=== PATIENT | female | born 1945 | race Caucasian/White ===

== ENCOUNTER 2020-04-11 07:13 | Inpatient (IN) | payer MEDICARE, OTHER ==
[2020-04-11] MEDS ORDERED: PANTOPRAZOLE 40 MG VIAL IVP STA (07:29)
[2020-04-11] MEDS ORDERED: ONDANSETRON 4 MG/2 ML VIAL IVP STA (07:29)
--- NOTE | 2020-04-11 07:32 | ED Physician Documentation ---
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 She takes aspirin daily, no other anticoagulants or NSAIDs. She woke just after midnight with nausea and vomiting with frequent stools. Subsequently the vomiting became more dark consistent with blood. There is no associated pain. No fevers. No sick contacts. Review of Systems Ten Systems: 10 systems reviewed and negative Constitutional: denies: Fever, Chills GI: reports: Nausea, Vomiting. denies: Abdominal Pain, Bloody / black stool Psychiatric: reports: Anxiety (It is been a tough year for her, lots of worries about politics.) PD PAST MEDICAL HISTORY - Past Medical History Past Medical History: Yes Cardiovascular: Hypertension - Past Surgical History Past Surgical History: Yes General: Cholecystectomy Cardiovascular: Other (R carotid endarterectomy) - Allergies Allergies/Adverse Reactions: Allergies Allergy/AdvReac Type Severity Reaction Status Date / Time erythromycin base Allergy Rash Verified 04/11/20 07:29 - Family History Family history: reports: Non contributory PD ED PE NORMAL - Vitals Vital signs reviewed: Yes - General General: Alert and oriented X 3, No acute distress - HEENT HEENT: PERRL, EOMI - Neck Neck: Supple, no meningeal sign, No bony TTP - Cardiac Cardiac: RRR, No murmur - Respiratory Respiratory: No respiratory distress, Clear bilaterally - Abdomen Abdomen: Soft, Non tender - Derm Derm: No rash - Extremities Extremities: No edema - Neuro Neuro: Alert and oriented X 3, Normal speech Results - Vitals Vitals: Vital Signs - 24 hr 04/11/20 04/11/20 04/11/20 07:25 09:24 11:16 Temperature 36.7 C 36.5 C Heart Rate 70 70 73 Respiratory 22 17 Rate Blood Pressure 197/109 H 171/80 H 168/76 H O2 Saturation 99 98 97 Oxygen O2 Source Room air - EKG (time done) 1254 Rate: Rate (enter#) (69) Rhythm: NSR, LAE Perry: Normal Intervals: Normal CA Ischemia: Non specific changes. No: ST elevation c/w ischemia Computer interpretation: Agree with computer - Labs Labs: Laboratory Tests 04/11/20 04/11/20 04/11/20 07:30 07:30 07:30 WBC 7.8 RBC 4.86 Hgb 13.5 Hct 41.3 MCV 85.0 MCH 27.8 MCHC 32.7 RDW 14.0 Plt Count 195 MPV 10.1 Neut # (Auto) 5.9 Lymph # (Auto) 1.5 Davis # (Auto) 0.3 Eos # (Auto) 0.0 Baso # (Auto) 0.0 Absolute Nucleated RBC 0.00 Nucleated RBC % 0.0 PT 12.4 INR 1.1 Sodium 141 Potassium 3.5 Chloride 104 Carbon Dioxide 25 Anion Gap 12.0 BUN 25 H Creatinine 0.9 Estimated GFR (MDRD) 61 L Glucose 149 H Calcium 9.7 Total Bilirubin 0.7 AST 25 ALT 19 Alkaline Phosphatase 86 Troponin I High Sens Total Protein 7.8 Albumin 4.4 Globulin 3.4 Albumin/Globulin Ratio 1.3 Lipase 39 Blood Type Blood Type Recheck Antibody Screen 04/11/20 04/11/20 04/11/20 07:30 07:30 07:40 WBC RBC Hgb Hct MCV MCH MCHC RDW Plt Count MPV Neut # (Auto) Lymph # (Auto) Davis # (Auto) Eos # (Auto) Baso # (Auto) Absolute Nucleated RBC Nucleated RBC % PT INR Sodium Potassium Chloride Carbon Dioxide Anion Gap BUN Creatinine Estimated GFR (MDRD) Glucose Calcium Total Bilirubin AST ALT Alkaline Phosphatase Troponin I High Sens 11.7 Total Protein Albumin Globulin Albumin/Globulin Ratio Lipase Blood Type O NEGATIVE Blood Type Recheck O NEGATIVE Antibody Screen NEGATIVE 04/11/20 09:32 WBC RBC Hgb 12.4 Hct 39.0 MCV MCH MCHC RDW Plt Count MPV Neut # (Auto) Lymph # (Auto) Davis # (Auto) Eos # (Auto) Baso # (Auto) Absolute Nucleated RBC Nucleated RBC % PT INR Sodium Potassium Chloride Carbon Dioxide Anion Gap BUN Creatinine Estimated GFR (MDRD) Glucose Calcium Total Bilirubin AST ALT Alkaline Phosphatase Troponin I High Sens Total Protein Albumin Globulin Albumin/Globulin Ratio Lipase Blood Type Blood Type Recheck Antibody Screen PD MEDICAL DECISION MAKING - ED course ED course: 74-year-old woman with vomiting and loose stools, pattern consistent with gastroenteritis and then the vomit became somewhat bloody most consistent with a Amairani-Reyes tear. She was treated with divided doses of him antiemetics, and was still feeling bad although the vomiting pretty much abated. She had a 1 point drop in H&H after 2 hours. EKG was nonischemic. She continued to have significant nausea and could not tolerate oral liquids and after a fourth dose of antiemetics the decision was made to place her in observation which Dr. Marie will do. Coronary insult was considered, but EKG and troponin are nonischemic. Departure - Departure Disposition: ED Place in Observation Clinical Impression: Vomiting Qualifiers: Vomiting type: unspecified Vomiting Intractability: intractable Nausea presence: with nausea Qualified Code(s): R11.2 - Nausea with vomiting, unspecified Condition: Stable Discharge Date/Time: 04/11/20 14:59
[2020-04-11 07:42] LABS: BASOPHILS % (AUTO) 0.3 %; EOSINOPHILS % (AUTO) 0.3 %; HGB - HEMOGLOBIN 13.5 g/dL (12.0-16.0); LYMPHOCYTES # (AUTO) 1.5 10^3/uL (1.5-3.5); LYMPHOCYTES % (AUTO) 18.8 %; MEAN CORPUSCULAR HEMOGLOBIN 27.8 pg (27.0-31.0); MEAN CORPUSCULAR HGB CONC 32.7 g/dL (32.0-36.0); MEAN PLATELET VOLUME 10.1 fL (7.9-10.8); MONOCYTES # (AUTO) 0.3 10^3/uL (0.0-1.0); MONOCYTES % (AUTO) 3.7 %; NEUTROPHILS # (AUTO) 5.9 10^3/uL (1.5-6.6); NEUTROPHILS % (AUTO) 76.4 %; PLT - PLATELET COUNT 195 10^3/uL (130-450); RED BLOOD COUNT 4.86 10^6/uL (4.20-5.40); WHITE BLOOD COUNT 7.8 x10^3/uL (4.8-10.8)
[2020-04-11 07:53] LABS: INR 1.1 (0.8-1.2); PT - PROTHROMBIN TIME 12.4 secs (9.9-12.6)
[2020-04-11 08:11] LABS: ALBUMIN 4.4 g/dL (3.2-5.5); ALBUMIN/GLOBULIN RATIO 1.3 (1.0-2.2); BILIRUBIN,TOTAL 0.7 mg/dL (0.2-1.0); CALCIUM 9.7 mg/dL (8.5-10.3); CREATININE 0.9 mg/dL (0.4-1.0); TOTAL PROTEIN 7.8 g/dL (6.7-8.2)
[2020-04-11] MEDS ORDERED: METOCLOPRAMIDE 10 MG/2 ML VIAL IVP STA (08:18)
[2020-04-11 09:38] LABS: HGB - HEMOGLOBIN 12.4 g/dL (12.0-16.0)
[2020-04-11] MEDS ORDERED: PROMETHAZINE INJ 25 MG in SODIUM CHLORIDE 0.9% 50 ML IV STA (10:03)
[2020-04-11] MEDS ORDERED: MAG HYDROX/AL HYDROX/SIMETH 30 ML UDC PO STA (12:49)
[2020-04-11] MEDS ORDERED: LIDOCAINE VISCOUS 2% 15 ML UDC MM STA (12:49)
[2020-04-11] MEDS ORDERED: HYDROmorphone 0.5 MG/0.5 ML SYRINGE IVP PRN (14:09)
--- NOTE | 2020-04-11 14:09 | HISTORY & PHYSICAL EXAMINATION ---
Chief Complaint - Chief Complaint Chief Complaint: nausea and vomitting, intractable, since 12:30 am History of Present Illness - Admitted From Admitted From:: Home/ER - History Obtained From Records Reviewed: [facility] History obtained from: patient and Dr. Castellon Exam Limitations: nausea, intermittent dry heaves - History of Present Illness HPI Comment/Other: This patient woke up after midnight with severe nausea. That then progressed to vomiting. She has not had diarrhea but she has had frequent stools. There is been no fever, chills. No generalized abdominal pain. No one is sick around her. She and her daughter, who lives with her, had the same food last night. Daughter is not ill. As the night progressed and the vomiting continued, she began vomiting blood this morning. Small amounts. She does not have a history of alcohol abuse. She does take a daily aspirin for history of right carotid endarterectomy. She does not have a history of gastritis, ulcers. Does have a history of cholecystectomy in the remote past. She does not use cannabis on a regular basis. There is no change in vision, dizziness, vertigo associated with this. No facial dysesthesia or localizing loss of neurological signs. She presented to the emergency room and was evaluated. She was afebrile at 36.7. Pulse was 70. Blood pressure was 197/109. That was at 7:30 in the morning. It is now 2:15 in the afternoon. She is received 4 courses of antiemetics without response. IV fluids. Blood pressure is now 168/76. Exam has been negative. Labs are relatively benign except for a glucose of 149. CBC is normal. Troponin this morning was 11.7 with a normal EKG. Since she is not responding to antiemetics, still having emesis in the emergency room, with hematemesis, she will be placed in observation to control her vomiting, and to do serial hemograms. 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 Mom in her early 80s of complications of coronary artery disease. 3 siblings: 1 sister with breast cancer, one brother with pancreatic cancer, 1 sister with A. fib. 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 She has 2 brothers children, one adopted child from [place]. Her middle child is currently living with her due to her daughters financial circumstances after COVID-19 crisis. She is a non-smoker. Never did. 1 glass of wine max a day. No history of alcohol abuse. No use of cannabis. No history of recreational substance abuse. She has been since 2010 wh en her after falling down the stairs, and having brain bleeds. - Substance History Use: Uses substance without health or social issues: NONE Abuse: Recurrent use of substance despite neg consequences: NONE Dependence: Experiences withdrawal or developed tolerances: NONE - POLST Patient has POLST: No POLST Status: DNR Meds/Allgy - Home Medications Home Medications: Ambulatory Orders Medication Instructions Recorded Confirmed Losartan Potassium [Cozaar] 100 mg PO DAILY 04/11/20 Metoprolol Succinate [Toprol Xl] 25 mg PO DAILY 04/11/20 - Allergies Allergies/Adverse Reactions: Allergies Allergy/AdvReac Type Severity Reaction Status Date / Time erythromycin base Allergy Rash Verified 04/11/20 07:29 Review of Systems - Constitutional Constitutional: denies: Fatigue, Fever, Chills, Malaise, Poor appetite, Diaphoresis, Weight gain, Weight loss - Eyes Eyes: denies: Pain, Amaurosis, Blurred vision, Vision loss - Ears, Nose & Throat Ears, Nose & Throat: denies: Ear pain, Hearing loss, Nasal pain, Nasal discharge, Dentures, Sore throat, Hoarseness - Cardiovascular Cariovascular: denies: Irregular heart rate, Palpitations, Chest pain, Edema, Exertional dyspnea, Decr. exercise tolerance - Respiratory Respiratory: denies: Cough, Sputum production, Wheezing, Snoring - Gastrointestinal Gastrointestinal: reports: Nausea, Vomiting, William blood emesis. denies: Abdominal pain, Abdominal distention, Coffee grounds emesis, Reflux/heartburn, Bloating, Poor appetite - Genitourinary Genitourinary: denies: Dysuria, Frequency, Urgency, Hematuria - Musculoskeletal Musculoskeletal: denies: Muscle pain, Back pain, Muscle aches, Stiffness - Integumentary Integumentary: denies: Rash, Lesions, Dryness - Neurological Neurological: denies: General weakness, Focal weakness, Headache, Dizziness - Psychiatric Psychiatric: reports: Anxiety (About the fate of this country. The presidential election. And just the COVID-19 crisis in general and how it is affected her children.). denies: Depression, Suicidal, Delusions, Hallucinations, Homicidal - Endocrine Endocrine: denies: Polyuria, Polydypsia - Hematologic/Lymphatic Hematologic/Lymphatic: denies: Anemia, Bruising, Petechiae, Blood clots Prior Level of Functionality: Completely independent with activities of daily living. Maintains her household. Drives. Pays bills. Cooks/cleans/gardens. Does not use any durable medical equipment. Exam - Vital Signs Reviewed Vital Signs: Yes Vital Signs: Vital Signs x48h Temp Pulse Resp BP Pulse Ox 04/11/20 11:16 36.5 C 73 17 168/76 H 97 04/11/20 09:24 70 171/80 H 98 04/11/20 07:25 36.7 C 70 22 197/109 H 99 - Physical Exam General Appearance: positive: Other (Sleeping, wakes easily with my voice. Sits up, does most of history and physical with eyes closed because she is so miserable with the nausea. During my exam and history taking she has 2 episodes of dry heaves.) Eyes Bilateral: positive: PERRL, EOMI ENT: positive: Dry mucous membranes Neck: positive: No JVD. negative: Lymphadenopathy (R), Lymphadenopathy (L), Stiff neck Respiratory: positive: Chest non-tender. negative: Wheezes, Rales, Rhonchi Cardiovascular: positive: Regular rate & rhythm. negative: Systolic murmur, Gallop/S4, Friction rub Peripheral Pulses: positive: 1+ Abdomen: positive: Non-tender, No organomegaly, No distention, Other (Hypoactive bowel sounds) Skin: positive: Warm, Dry, Pallor Extremities: positive: Non-tender, Full ROM Neurologic/Psychiatric: positive: Oriented x3, CN's nml (2-12), Motor nml, Sensation nml Conclusion/Plan - Problem List (1) Intractable nausea and vomiting Conclusion/Plan: Differential diagnosis would include some type of food poisoning, nonsteroidal gastritis, with possible Amairani-Reyes tear because of the dry heaves. She does not have a history of alcohol and as such no alcoholic gastritis or hepatitis. She does not smoke cannabis as such no cyclical vomiting. Liver enzymes normal, lipase normal so I do not suspect pancreatitis and physical exam is negative for that. In spite of intractable nausea and vomiting, there is no abdominal pain with this so I do not suspect a bowel obstruction. Plan: Observation status Zofran, Compazine, Phenergan as needed Proton pump inhibitor IV fluids for hydration Haldol x1 dose Monitor for chest pain, fever (2) Hematemesis of unknown cause Conclusion/Plan: She is not known to our healthcare system but she reports that she does not have any history of anemia. Her first blood draw at 7:30 this morning was 13.5. Second blood draw 9:30 was 12.4 hemoglobin. Plan: Hemogram and 12 hours Monitor for signs and symptoms of GI bleed, Amairani Reyes She would prefer to go home once her symptoms are under control and get EGD as outpatient (3) HTN (hypertension) Conclusion/Plan: She takes losartan and metoprolol. At this point in time she is driving enough that I do not think medications will stay down. Plan: Metoprolol 5 mg IV push every 6 hours PRN hypertension Resume losartan when she stops vomiting Qualifiers: Hypertension type: essential hypertension Qualified Code(s): I10 - Essential (primary) hypertension - Lab Results Lab results reviewed: Yes Fish Bones: 04/11/20 09:32 04/11/20 07:30 - EKG Results EKG Interpreted Independently: No EKG Comparison: No prior EKG EKG Findings: NSR. Nml EKG Core Measures - Anticipated LOS I expect patient to be DC'd or transferred within 96 hours.: Yes - DVT/VTE - Prophylaxis VTE/DVT Device ordered at admit?: Yes
[2020-04-11] MEDS: SODIUM CHLORIDE FLUSH 0.9% 10 ML SYRINGE IVP PRN (15:32)
[2020-04-11] MEDS: ONDANSETRON 4 MG/2 ML VIAL IVP PRN ×2 (15:32→22:18)
[2020-04-11] MEDS: NS W/20 MEQ KCL 1,000 ML IV SCH (15:55)
[2020-04-11] MEDS: SODIUM CHLORIDE FLUSH 0.9% 10 ML SYRINGE IVP SCH (15:55)
[2020-04-11] MEDS ORDERED: HALOPERIDOL 5 MG/ML VIAL IVP ONE (16:12)
[2020-04-11 16:51] LABS: HGB - HEMOGLOBIN 12.3 g/dL (12.0-16.0)
[2020-04-12 00:55] LABS: HGB - HEMOGLOBIN 11.6 g/dL (12.0-16.0)
[2020-04-12] MEDS: PROCHLORPERAZINE 10 MG/2 ML VIAL IVP PRN ×2 (01:31→12:39)
[2020-04-12] MEDS: NS W/20 MEQ KCL 1,000 ML IV SCH ×3 (01:44→21:47)
[2020-04-12] MEDS: SODIUM CHLORIDE FLUSH 0.9% 10 ML SYRINGE IVP SCH ×4 (01:48→23:58)
[2020-04-12] MEDS: SODIUM CHLORIDE FLUSH 0.9% 10 ML SYRINGE IVP PRN (06:11)
[2020-04-12] MEDS ORDERED: PANTOPRAZOLE 40 MG VIAL IVP SCH (07:00)
[2020-04-12 07:35] LABS: BASOPHILS % (AUTO) 0.3 %; CALCIUM 8.4 mg/dL (8.5-10.3); CREATININE 0.9 mg/dL (0.4-1.0); HGB - HEMOGLOBIN 10.6 g/dL (12.0-16.0); LYMPHOCYTES # (AUTO) 1.8 10^3/uL (1.5-3.5); LYMPHOCYTES % (AUTO) 24.6 %; MEAN CORPUSCULAR HEMOGLOBIN 27.9 pg (27.0-31.0); MEAN CORPUSCULAR VOLUME 87.1 fL (81.0-99.0); MEAN PLATELET VOLUME 10.2 fL (7.9-10.8); MONOCYTES # (AUTO) 0.8 10^3/uL (0.0-1.0); MONOCYTES % (AUTO) 10.5 %; NEUTROPHILS # (AUTO) 4.6 10^3/uL (1.5-6.6); NEUTROPHILS % (AUTO) 63.9 %; PHOSPHORUS 2.7 mg/dL (2.5-4.6); PLT - PLATELET COUNT 155 10^3/uL (130-450); RED CELL DISTRIBUTION WIDTH 14.6 % (12.0-15.0); WHITE BLOOD COUNT 7.2 x10^3/uL (4.8-10.8)
--- NOTE | 2020-04-12 08:39 | PROVIDER PROGRESS NOTE ---
Subjective - Prog Note Date Prog Note Date: 04/12/20 Prog Note Time: 08:39 - Subjective Subjective: she is sleepy and has less nausea. But the last emesis she had was 100 cc of coffee grounds that smelled like blood. No fever, no chest pain. Current Medications - Current Medications Current Medications: Active Medications Hydromorphone HCl (Dilaudid Inj Syringe) 0.5 mg IVP Q2H PRN PRN Reason: Pain 8 to 10 Potassium Chloride/Sodium Chloride (Normal Saline 0.9% W/20 Meq Kcl) 1,000 mls @ 100 mls/hr IV .Q10H [facility] [place] Last Admin: 04/12/20 01:44 Dose: 100 mls/hr Documented by: Ondansetron HCl (Zofran Inj) 4 mg IVP Q6HR PRN PRN Reason: Nausea / Vomiting Last Admin: 04/11/20 22:18 Dose: 4 mg Documented by: Pantoprazole Sodium (Protonix) 40 mg IVP QDAC [facility] [place] Last Admin: 04/12/20 06:11 Dose: 40 mg Documented by: Prochlorperazine Edisylate (Compazine Inj) 10 mg IVP Q6HR PRN PRN Reason: Nausea / Vomiting Last Admin: 04/12/20 01:31 Dose: 10 mg Documented by: Sodium Chloride (Normal Saline Flush 0.9%) 10 ml IVP PRN PRN PRN Reason: NEEDED PER PROVIDER ORDERS Last Admin: 04/12/20 06:11 Dose: 10 ml Documented by: Sodium Chloride (Normal Saline Flush 0.9%) 10 ml IVP 0100,0900,1700 [facility] [place] Last Admin: 04/12/20 01:48 Dose: Not Given Documented by: Losartan Potassium [Cozaar] 100 mg PO DAILY 04/11/20 Metoprolol Succinate [Toprol Xl] 25 mg PO DAILY 04/11/20 Objective - Vital Signs/Intake & Output Reviewed Vital Signs: Yes Vital Signs: Vital Signs x48h Temp Pulse Resp BP BP Pulse Ox 04/12/20 08:00 37.0 C 78 18 156/70 H 94 04/12/20 06:22 37.0 C 79 18 130/61 94 04/12/20 01:00 36.9 C 73 19 152/55 H 94 Intake & Output: Intake & Output 04/09/20 04/10/20 04/11/20 04/12/20 23:59 23:59 23:59 23:59 Intake Total 51 1000 Output Total 100 100 Balance -49 900 - Objective General Appearance: positive: No acute distress, Other (sleepy) Eyes Bilateral: positive: PERRL, EOMI ENT: positive: No signs of dehydration Neck: positive: No JVD Respiratory: positive: Chest non-tender. negative: Wheezes, Rales, Rhonchi Cardiovascular: positive: Regular rate & rhythm. negative: Gallop/S4, Friction rub Abdomen: positive: Non-tender, No organomegaly, Nml bowel sounds, No distention Skin: positive: Warm, Dry, Pallor Extremities: positive: Non-tender, No pedal edema Neurologic/Psychiatric: positive: Oriented x3, CN's nml (2-12), Motor nml - Lab Results Fish Bones: 04/12/20 07:15 04/12/20 07:15 Other Labs: Lab Results x24hrs 04/12/20 04/12/20 04/12/20 Range/Units 07:15 07:15 00:50 WBC 7.2 (4.8-10.8) x10^3/uL RBC 3.80 L (4.20-5.40) 10^6/uL Hgb 10.6 L 11.6 L (12.0-16.0) g/dL Hct 33.1 L 36.5 L (37.0-47.0) % MCV 87.1 (81.0-99.0) fL MCH 27.9 (27.0-31.0) pg MCHC 32.0 (32.0-36.0) g/dL RDW 14.6 (12.0-15.0) % Plt Count 155 (130-450) 10^3/uL MPV 10.2 (7.9-10.8) fL Neut # (Auto) 4.6 (1.5-6.6) 10^3/uL Lymph # (Auto) 1.8 (1.5-3.5) 10^3/uL Gates # (Auto) 0.8 (0.0-1.0) 10^3/uL Eos # (Auto) 0.0 (0.0-0.7) 10^3/uL Baso # (Auto) 0.0 (0.0-0.1) 10^3/uL Absolute Nucleated RBC 0.00 x10^3/uL Nucleated RBC % 0.0 /100WBC Sodium 141 (135-145) mmol/L Potassium 3.4 L (3.5-5.0) mmol/L Chloride 107 (101-111) mmol/L Carbon Dioxide 25 (21-32) mmol/L Anion Gap 9.0 (6-13) BUN 23 H (6-20) mg/dL Creatinine 0.9 (0.4-1.0) mg/dL Estimated GFR (MDRD) 61 L (>89) Glucose 125 H (70-100) mg/dL Calcium 8.4 L (8.5-10.3) mg/dL Phosphorus 2.7 (2.5-4.6) mg/dL Magnesium 2.0 (1.7-2.8) mg/dL Troponin I High Sens (2.3-14.8) ng/L Antibody Screen 04/11/20 04/11/20 04/11/20 Range/Units 16:44 09:32 07:40 WBC (4.8-10.8) x10^3/uL RBC (4.20-5.40) 10^6/uL Hgb 12.3 12.4 (12.0-16.0) g/dL Hct 38.8 39.0 (37.0-47.0) % MCV (81.0-99.0) fL MCH (27.0-31.0) pg MCHC (32.0-36.0) g/dL RDW (12.0-15.0) % Plt Count (130-450) 10^3/uL MPV (7.9-10.8) fL Neut # (Auto) (1.5-6.6) 10^3/uL Lymph # (Auto) (1.5-3.5) 10^3/uL Gates # (Auto) (0.0-1.0) 10^3/uL Eos # (Auto) (0.0-0.7) 10^3/uL Baso # (Auto) (0.0-0.1) 10^3/uL Absolute Nucleated RBC x10^3/uL Nucleated RBC % /100WBC Sodium (135-145) mmol/L Potassium (3.5-5.0) mmol/L Chloride (101-111) mmol/L Carbon Dioxide (21-32) mmol/L Anion Gap (6-13) BUN (6-20) mg/dL Creatinine (0.4-1.0) mg/dL Estimated GFR (MDRD) (>89) Glucose (70-100) mg/dL Calcium (8.5-10.3) mg/dL Phosphorus (2.5-4.6) mg/dL Magnesium (1.7-2.8) mg/dL Troponin I High Sens (2.3-14.8) ng/L Antibody Screen NEGATIVE 04/11/20 Range/Units 07:30 WBC (4.8-10.8) x10^3/uL RBC (4.20-5.40) 10^6/uL Hgb (12.0-16.0) g/dL Hct (37.0-47.0) % MCV (81.0-99.0) fL MCH (27.0-31.0) pg MCHC (32.0-36.0) g/dL RDW (12.0-15.0) % Plt Count (130-450) 10^3/uL MPV (7.9-10.8) fL Neut # (Auto) (1.5-6.6) 10^3/uL Lymph # (Auto) (1.5-3.5) 10^3/uL Gates # (Auto) (0.0-1.0) 10^3/uL Eos # (Auto) (0.0-0.7) 10^3/uL Baso # (Auto) (0.0-0.1) 10^3/uL Absolute Nucleated RBC x10^3/uL Nucleated RBC % /100WBC Sodium (135-145) mmol/L Potassium (3.5-5.0) mmol/L Chloride (101-111) mmol/L Carbon Dioxide (21-32) mmol/L Anion Gap (6-13) BUN (6-20) mg/dL Creatinine (0.4-1.0) mg/dL Estimated GFR (MDRD) (>89) Glucose (70-100) mg/dL Calcium (8.5-10.3) mg/dL Phosphorus (2.5-4.6) mg/dL Magnesium (1.7-2.8) mg/dL Troponin I High Sens 11.7 (2.3-14.8) ng/L Antibody Screen Assessment/Plan - Problem List (1) Acute blood loss anemia Impression: Continue monitoring serial hemoglobins. She appears to be now having a slow upper GI bleed. This may have been the cause of her nausea, vomiting. She is already been typed and screened. Transfuse if drops below 8. (2) Hematemesis of unknown cause Conclusion/Plan: On the day of admission she had scant blood in her emesis. We attributed to the trauma of retching. We were a little concerned about Amairani-Reyes tear vs. gas tritis. She was on daily ASA. Overnight she has had less nausea, less emesis but one emesis was 100 cc of coffee-ground that smelled like blood. Hgb has also dropped. Plan: Continue serial hemoglobins NPO Consult surgery for EGD. Discussed with patient and she is amenable. (3) Intractable nausea and vomiting improved Conclusion/Plan: Differential diagnosis would include some type of food poisoning, nonsteroidal gastritis, with possible Amairani-Reyes tear because of the dry heaves. She does not have a history of alcohol and as such no alcoholic gastritis or hepatitis. She does not smoke cannabis as such no cyclical vomiting. Liver enzymes normal, lipase normal so I do not suspect pancreatitis and physical exam is negative for that. In spite of intractable nausea and vomiting, there is no abdominal pain with this so I do not suspect a bowel obstruction. Haldol x 1 dose was effective at reducing dry heaves and nausea. Her symptoms have improved in that they are less severe, however, coffee ground emesis with anemia leads us down the UGI bleed algorithim. Plan: Observation status to continue until EGD. If EGD shows gastritis, may be able to leave today. If EGD shows continued bleeding, she may need to stay. Zofran, Compazine, Phenergan as needed Proton pump inhibitor continues. IV fluids for hydration Monitor for chest pain, fever (4) HTN (hypertension) Conclusion/Plan: She takes losartan and metoprolol. At this point in time she is driving enough that I do not think medications will stay down.Blood pressure varies from 130 systolic to 156 systolic. Plan: Metoprolol 5 mg IV push every 6 hours PRN hypertension Resume losartan when she stops vomiting Qualifiers: Hypertension type: essential hypertension Qualified Code(s): I10 - Essential (primary) hypertension
--- NOTE | 2020-04-12 10:50 | PHARMACY PROGRESS NOTE ---
- Best Possible Medication History Admit Date and Time: 04/11/20 1409 Processed by: Pharmacy Medication History completed: Yes Secondary Source(s): Pharmacy records As the person ultimately responsible for medication therapy, providers are able to order a medication from an existing home medication list in [facility] via the "Reconcile Routine" prior to Confirmation of that medication by bilingual patient support caseworker. Such practice is discouraged except when the physician, in their clinical judgment, deems that a medical need exists for a medication without regard to previous use.
[2020-04-12] MEDS: METOPROLOL 5 MG/5 ML VIAL IVP PRN (13:11)
[2020-04-12] MEDS: ONDANSETRON 4 MG/2 ML VIAL IVP PRN (14:32)
--- NOTE | 2020-04-12 15:45 | ANESTHESIA ---
Pre-Anesthesia VS, & Labs - Diagnosis gi bleed - Procedure egd Vital Signs: Temp Pulse Resp BP Pulse Ox 37.6 C H 78 16 174/70 H 97 04/12/20 12:00 04/12/20 12:00 04/12/20 12:00 04/12/20 13:41 04/12/20 12:00 Height: 5 ft 7 in Weight (kg): 82.2 kg Body Mass Index: 28.3 BMI Classification: Overweight - NPO >8 hours - Is Patient ?: No - Lab Results Current Lab Results: Laboratory Tests 04/12/20 07:15: Sodium 141, Potassium 3.4 L, Chloride 107, Carbon Dioxide 25, Anion Gap 9.0, BUN 23 H, Creatinine 0.9, Estimated GFR (MDRD) 61 L, Glucose 125 H, Calcium 8.4 L, Phosphorus 2.7, Magnesium 2.0 04/12/20 07:15: WBC 7.2, RBC 3.80 L, Hgb 10.6 L, Hct 33.1 L, MCV 87.1, MCH 27.9, MCHC 32.0, RDW 14.6, Plt Count 155, MPV 10.2, Neut # (Auto) 4.6, Lymph # (Auto) 1.8, [place] # (Auto) 0.8, Eos # (Auto) 0.0, Baso # (Auto) 0.0, Absolute Nucleated RBC 0.00, Nucleated RBC % 0.0 04/12/20 00:50: Hgb 11.6 L, Hct 36.5 L 04/11/20 16:44: Hgb 12.3, Hct 38.8 04/11/20 09:32: Hgb 12.4, Hct 39.0 04/11/20 07:40: Blood Type O NEGATIVE, Antibody Screen NEGATIVE 04/11/20 07:30: Troponin I High Sens 11.7 04/11/20 07:30: Blood Type Recheck O NEGATIVE 04/11/20 07:30: Sodium 141, Potassium 3.5, Chloride 104, Carbon Dioxide 25, Anion Gap 12.0, BUN 25 H, Creatinine 0.9, Estimated GFR (MDRD) 61 L, Glucose 149 H, Calcium 9.7, Total Bilirubin 0.7, AST 25, ALT 19, Alkaline Phosphatase 86, Total Protein 7.8, Albumin 4.4, Globulin 3.4, Albumin/Globulin Ratio 1.3, Lipase 39 04/11/20 07:30: PT 12.4, INR 1.1 04/11/20 07:30: WBC 7.8, RBC 4.86, Hgb 13.5, Hct 41.3, MCV 85.0, MCH 27.8, MCHC 32.7, RDW 14.0, Plt Count 195, MPV 10.1, Neut # (Auto) 5.9, Lymph # (Auto) 1.5, [place] # (Auto) 0.3, Eos # (Auto) 0.0, Baso # (Auto) 0.0, Absolute Nucleated RBC 0.00, Nucleated RBC % 0.0 Lab results reviewed: Yes Fish Bones: 04/12/20 07:15 04/12/20 07:15 Home Medications and Allergies Home Medications: Ambulatory Orders Losartan Potassium [Cozaar] 100 mg PO DAILY 04/11/20 Metoprolol Succinate [Toprol Xl] 25 mg PO DAILY 04/11/20 Active Medications Hydromorphone HCl (Dilaudid Inj Syringe) 0.5 mg IVP Q2H PRN PRN Reason: Pain 8 to 10 Potassium Chloride/Sodium Chloride (Normal Saline 0.9% W/20 Meq Kcl) 1,000 mls @ 100 mls/hr IV .Q10H [facility] Last Admin: 04/12/20 11:28 Dose: 100 mls/hr Documented by: Metoprolol Tartrate (Lopressor Inj) 5 mg IVP Q6H PRN PRN Reason: Hypertensive Emergency Last Admin: 04/12/20 13:11 Dose: 5 mg Documented by: Ondansetron HCl (Zofran Inj) 4 mg IVP Q6HR PRN PRN Reason: Nausea / Vomiting Last Admin: 04/12/20 14:32 Dose: 4 mg Documented by: Pantoprazole Sodium (Protonix) 40 mg IVP QDAC [facility] Last Admin: 04/12/20 06:11 Dose: 40 mg Documented by: Prochlorperazine Edisylate (Compazine Inj) 10 mg IVP Q6HR PRN PRN Reason: Nausea / Vomiting Last Admin: 04/12/20 12:39 Dose: 10 mg Documented by: Sodium Chloride (Normal Saline Flush 0.9%) 10 ml IVP PRN PRN PRN Reason: NEEDED PER PROVIDER ORDERS Last Admin: 04/12/20 06:11 Dose: 10 ml Documented by: Sodium Chloride (Normal Saline Flush 0.9%) 10 ml IVP 0100,0900,1700 [facility] Last Admin: 04/12/20 08:42 Dose: Not Given Documented by: Losartan Potassium [Cozaar] 100 mg PO DAILY 04/11/20 Metoprolol Succinate [Toprol Xl] 25 mg PO DAILY 04/11/20 Allergies/Adverse Reactions: Allergies Allergy/AdvReac Type Severity Reaction Status Date / Time erythromycin base Allergy Rash Verified 04/11/20 07:29 Anes History & Medical History - Anesthetic History Anesthesia Complications: reports: No previous complications Family history of Anesthesia Complications: Denies Family history of Malignant Hyperthermia: Denies - Medical History Cardiovascular: reports: Hypertension, Peripheral Vascular Disease (carotid) Gastrointestinal: reports: None Urinary: reports: None Musculoskeletal: reports: None Smoking Status: Never smoker - Surgical History General: Cholecystectomy Cardiothoracic: Other (R carotid endarterectomy) Results - EKG Results EKG Comparison: Reviewed EKG Exam General: Alert, Oriented x3, Cooperative, No acute distress Dental: WNL Neck Mobility: Normal Mallampati classification: I Thyromental Distance: 4-6 cm Respiratory: Lungs clear, Normal breath sounds, No respiratory distress, No accessory muscle use Cardiovascular: Regular rate Plan Anesthesia Type: MAC Consent for Procedure(s) Verified and Reviewed: Yes Code Status: Attempt Resuscitation ASA classification: 3-Severe systemic disease Is this case an emergency?: No
[2020-04-12] MEDS ORDERED: ePHEDrine 50 MG/ML VIAL IVP PRN (15:52)
[2020-04-12] MEDS ORDERED: fentaNYL 100 MCG/2 ML VIAL IVP PRN (15:52)
[2020-04-12] MEDS ORDERED: ONDANSETRON 4 MG/2 ML VIAL IVP PRN (15:52)
[2020-04-12] MEDS ORDERED: NALOXONE 0.4 MG/ML VIAL IVP PRN (15:52)
[2020-04-12] MEDS ORDERED: MORPHINE 2 MG/ML CARPUJECT IVP PRN (15:52)
[2020-04-12] MEDS ORDERED: ATROPINE ABBOJECT 1 MG/10 ML SYRINGE IVP PRN (15:52)
[2020-04-12] MEDS ORDERED: HYDROmorphone 0.5 MG/0.5 ML SYRINGE IVP PRN (15:52)
[2020-04-12] MEDS ORDERED: LACTATED RINGERS 1,000 ML IV SCH (16:00)
--- NOTE | 2020-04-12 16:19 | CONSULTATION NOTE ---
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 Seen, evaluated, and admitted but the hospitalist staff. I have been consulted for EGD. Only very small amounts of blood after wretching for some time. History - Past Medical History Cardiovascular: reports: Hypertension, Peripheral Vascular Disease (carotid) GI: reports: None CHANGE ADVISOR: reports: Other () : reports: None HEENT: reports: Other (wears glasses) Psych: reports: None Musculoskeletal: reports: None MRSA Hx?: No - Past Surgical History General: reports: Cholecystectomy Cardiovascular: reports: Other (R carotid endarterectomy) - Family & Social History Family History Comment/Other: Dad at age 68 of complications of cardiac valve repair. Mom in her early 80s of complications of coronary artery disease. 3 siblings: 1 sister with breast cancer, one brother with pancreatic cancer, 1 sister with A. fib. 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 She has 2 brothers children, one adopted child from [place]. Her middle child is currently living with her due to her daughters financial circumstances after COVID-19 crisis. She is a non-smoker. Never did. 1 glass of wine max a day. No history of alcohol abuse. No use of cannabis. No history of recreational substance abuse. She has been since 2010 when her after falling down the stairs, and having brain bleeds. - Substance History Use: Uses substance without health or social issues: NONE Abuse: Recurrent use of substance despite neg consequences: NONE Dependence: Experiences withdrawal or developed tolerances: NONE - POLST Patient has POLST: No POLST Status: DNR Meds/Allgy - Home Medications Home Medications: Ambulatory Orders Medication Instructions Recorded Confirmed Losartan Potassium [Cozaar] 100 mg PO DAILY 04/11/20 04/12/20 Metoprolol Succinate [Toprol Xl] 25 mg PO DAILY 04/11/20 04/12/20 - Allergies Allergies/Adverse Reactions: Allergies Allergy/AdvReac Type Severity Reaction Status Date / Time erythromycin base Allergy Rash Verified 04/11/20 07:29 Review of Systems - Constitutional Constitutional: reports: Malaise, Poor appetite. denies: Fever, Chills - Ears, Nose & Throat Ears, Nose & Throat: denies: Tinnitus, Vertigo - Cardiovascular Cariovascular: denies: Palpitations, Chest pain - Respiratory Respiratory: denies: Cough, Sputum production, Wheezing - Gastrointestinal Gastrointestinal: reports: Nausea, Vomiting, William blood emesis - Genitourinary Genitourinary: denies: Dysuria, Frequency Exam - Vital Signs Reviewed Vital Signs: Yes Vital Signs: Vital Signs x48h Temp Pulse Resp BP BP Pulse Ox 04/12/20 13:41 174/70 H 04/12/20 13:30 150/76 H 04/12/20 13:11 174/70 H 04/12/20 13:09 174/70 H 04/12/20 12:00 37.6 C H 78 16 169/75 H 97 - Physical Exam General Appearance: positive: No acute distress, Alert Eyes Bilateral: positive: Normal inspection, PERRL, EOMI ENT: positive: ENT inspection nml, Pharynx nml, No signs of dehydration Neck: positive: Nml inspection Respiratory: positive: Chest non-tender, No respiratory distress Cardiovascular: positive: Regular rate & rhythm Abdomen: positive: Non-tender, Nml bowel sounds Skin: positive: Color nml Neurologic/Psychiatric: positive: Oriented x3 Conclusion and Plan - Lab Results Laboratory Results 04/12/20 07:15: Sodium 141, Potassium 3.4 L, Chloride 107, Carbon Dioxide 25, Anion Gap 9.0, BUN 23 H, Creatinine 0.9, Estimated GFR (MDRD) 61 L, Glucose 125 H, Calcium 8.4 L, Phosphorus 2.7, Magnesium 2.0 04/12/20 07:15: WBC 7.2, RBC 3.80 L, Hgb 10.6 L, Hct 33.1 L, MCV 87.1, MCH 27.9, MCHC 32.0, RDW 14.6, Plt Count 155, MPV 10.2, Neut # (Auto) 4.6, Lymph # (Auto) 1.8, [place] # (Auto) 0.8, Eos # (Auto) 0.0, Baso # (Auto) 0.0, Absolute Nucleated RBC 0.00, Nucleated RBC % 0.0 04/12/20 00:50: Hgb 11.6 L, Hct 36.5 L 04/11/20 16:44: Hgb 12.3, Hct 38.8 04/11/20 09:32: Hgb 12.4, Hct 39.0 04/11/20 07:40: Blood Type O NEGATIVE, Antibody Screen NEGATIVE 04/11/20 07:30: Troponin I High Sens 11.7 04/11/20 07:30: Blood Type Recheck O NEGATIVE 04/11/20 07:30: Sodium 141, Potassium 3.5, Chloride 104, Carbon Dioxide 25, Anion Gap 12.0, BUN 25 H, Creatinine 0.9, Estimated GFR (MDRD) 61 L, Glucose 149 H, Calcium 9.7, Total Bilirubin 0.7, AST 25, ALT 19, Alkaline Phosphatase 86, Total Protein 7.8, Albumin 4.4, Globulin 3.4, Albumin/Globulin Ratio 1.3, Lipase 39 04/11/20 07:30: PT 12.4, INR 1.1 04/11/20 07:30: WBC 7.8, RBC 4.86, Hgb 13.5, Hct 41.3, MCV 85.0, MCH 27.8, MCHC 32.7, RDW 14.0, Plt Count 195, MPV 10.1, Neut # (Auto) 5.9, Lymph # (Auto) 1.5, [place] # (Auto) 0.3, Eos # (Auto) 0.0, Baso # (Auto) 0.0, Absolute Nucleated RBC 0.00, Nucleated RBC % 0.0 - Diagnosis Diagnosis: Nausea and vomiting with hematemesis. - Plan Plan: I agree with recommendation for EGD. We have discussed the risks and benefits of EGD and the patient has expressed a desire to have the procedure. Written and verbal consent were obtained.
[2020-04-12] MEDS: ENALAPRILAT 1.25 MG/ML VIAL IVP SCH ×2 (16:55→23:57)
--- NOTE | 2020-04-12 19:36 | ANESTHESIA POST OP EVALUATION ---
Anesthesia Post Eval - Post Anesthesia Eval Vitals: Last Vital Signs Temp 36.9 C 04/12/20 19:28 Pulse 84 04/12/20 19:28 Resp 19 04/12/20 19:28 BP 126/63 04/12/20 19:28 Pulse Ox 95 04/12/20 19:28 CV Function Including HR & BP: positive: Stable Pain Control: positive: Satisfactory Nausea & Vomiting: positive: Negative Mental Status: positive: Baseline Respiratory Status: Airway Patent Hydration Status: Satisfactory Anesthesia Complications: positive: None
[2020-04-12] MEDS: PANTOPRAZOLE 80 MG in SODIUM CHLORIDE 0.9% 100ML 100 ML IV SCH (21:25)
[2020-04-12] MEDS: ALBUTEROL NEB 2.5 MG/3 ML INH PRN (22:16)
[2020-04-13] MEDS: ENALAPRILAT 1.25 MG/ML VIAL IVP SCH ×3 (05:22→18:43)
[2020-04-13 06:03] LABS: BASOPHILS % (AUTO) 0.4 %; EOSINOPHILS % (AUTO) 1.2 %; HGB - HEMOGLOBIN 11.4 g/dL (12.0-16.0); LYMPHOCYTES % (AUTO) 12.5 %; MEAN CORPUSCULAR HEMOGLOBIN 27.7 pg (27.0-31.0); MEAN CORPUSCULAR HGB CONC 31.6 g/dL (32.0-36.0); MEAN CORPUSCULAR VOLUME 87.6 fL (81.0-99.0); MEAN PLATELET VOLUME 10.8 fL (7.9-10.8); MONOCYTES % (AUTO) 9.4 %; NEUTROPHILS % (AUTO) 76.2 %; PLT - PLATELET COUNT 150 10^3/uL (130-450); RED BLOOD COUNT 4.12 10^6/uL (4.20-5.40); RED CELL DISTRIBUTION WIDTH 14.5 % (12.0-15.0); WHITE BLOOD COUNT 7.4 x10^3/uL (4.8-10.8)
[2020-04-13 06:11] LABS: ABNORMAL LYMPHS % (MANUAL) 0 %
[2020-04-13 06:21] LABS: CALCIUM 8.4 mg/dL (8.5-10.3); CREATININE 0.9 mg/dL (0.4-1.0); MAGNESIUM 1.8 mg/dL (1.7-2.8)
[2020-04-13 06:32] LABS: BAND NEUTROPHILS % (MANUAL) 9 %; LYMPHOCYTES # (MANUAL) 1.4 10^3/uL (1.5-3.5); LYMPHOCYTES % (MANUAL) 19 %; MONOCYTES # (MANUAL) 0.4 10^3/uL (0.0-1.0); RBC MORPHOLOGY (MULTIPLE) NORMAL APPEARANCE (NORMAL)
[2020-04-13 06:33] LABS: DIFFERENTIAL COMMENT MANUAL DIFFERENTIAL; PLATELET ESTIMATE, MANUAL NORMAL (130-450,000) (NORMAL); PLATELET MORPHOLOGY NORMAL APPEARANCE (NORMAL)
[2020-04-13] MEDS: NS W/20 MEQ KCL 1,000 ML IV SCH ×2 (08:27→18:24)
[2020-04-13] MEDS: PANTOPRAZOLE 80 MG in SODIUM CHLORIDE 0.9% 100ML 100 ML IV SCH ×2 (08:27→17:19)
[2020-04-13] MEDS ORDERED: PIPERACILLIN/TAZOBACTAM 3.375 GM in SODIUM CHLORIDE 0.9% MINIBAG 100 ML IV SCH (08:30)
[2020-04-13] MEDS: SODIUM CHLORIDE FLUSH 0.9% 10 ML SYRINGE IVP SCH ×2 (08:32→16:57)
--- NOTE | 2020-04-13 09:20 | XRAY Report ---
PROCEDURE: Chest 1 View X-Ray INDICATIONS: Hypoxia. Dyspnea. TECHNIQUE: One view of the chest was acquired. COMPARISON: None FINDINGS: Surgical changes and devices: None. Lungs and pleura: Diffuse appearance of opacity within the left upper and lower lobes. Mediastinum: Mediastinal contours appear normal. Heart size is enlarged. Hiatal hernia is noted. Bones and chest wall: No suspicious bony lesions. Overlying soft tissues appear unremarkable. IMPRESSION: Diffuse left hemithorax opacities as above suggestive of pneumonia. Recommend interval follow-up afte r appropriate therapy to document resolution and exclude presence of underlying mass lesion. The above findings are concordant with preliminary report. Reviewed by: Laurie Yousif MD on 04/13/2020 9:19 AM PDT Approved by: Laurie Yousif MD on 04/13/2020 9:19 AM PDT Station ID: [id number]
[2020-04-13] MEDS: ALBUTEROL NEB 2.5 MG/3 ML INH PRN (15:55)
--- NOTE | 2020-04-13 16:08 | PROVIDER PROGRESS NOTE ---
Subjective - Prog Note Date Prog Note Date: 04/13/20 Prog Note Time: 16:10 - Subjective Pt reports feeling: Improved Subjective: She cannot believe the things that we found on her EGD. She recalls an episode a month ago where she had emesis x1 with a tiny little bit of blood. But nothing so dramatic as is. She does not feel like she has been retaining food. She does note that her stomach will get full and she feels better with belching but that is about it. She mentions that she has a hypercoagulable disorder. "It is only a little mild" but she cannot remember which 1. So she is increased her aspirin from a baby aspirin to a full aspirin a day in the last few months. She denies any hematochezia. She really does not feel like she has a hiatal hernia with reflux. Current Medications - Current Medications Current Medications: Active Medications Albuterol () 2.5 mg INH RTQ4H PRN PRN Reason: Wheezing Last Admin: 04/13/20 15:55 Dose: 2.5 mg Documented by: Enalaprilat (Vasotec Inj) 1.25 mg IVP Q6HR [facility] Last Admin: 04/13/20 12:07 Dose: 1.25 mg Documented by: Hydromorphone HCl (Dilaudid Inj Syringe) 0.5 mg IVP Q2H PRN PRN Reason: Pain 8 to 10 Potassium Chloride/Sodium Chloride (Normal Saline 0.9% W/20 Meq Kcl) 1,000 mls @ 100 mls/hr IV .Q10H [facility] Last Admin: 04/13/20 08:27 Dose: 100 mls/hr Documented by: Pantoprazole Sodium 80 mg/ (Sodium Chloride) 100 mls @ 10 mls/hr IV .Q10H [facility] Last Admin: 04/13/20 08:27 Dose: 10 mls/hr Documented by: Piperacillin Sod/Tazobactam (Sod 3.375 gm/ Sodium Chloride) 100 mls @ 25 mls/hr IV Q8H [facility] Metoclopramide HCl (Reglan Inj) 5 mg IVP Q6HR [facility] Stop: 04/14/20 06:01 Metoprolol Tartrate (Lopressor Inj) 5 mg IVP Q6H PRN PRN Reason: Hypertensive Emergency Last Admin: 04/12/20 13:11 Dose: 5 mg Documented by: Ondansetron HCl (Zofran Inj) 4 mg IVP Q6HR PRN PRN Reason: Nausea / Vomiting Last Admin: 04/12/20 14:32 Dose: 4 mg Documented by: Prochlorperazine Edisylate (Compazine Inj) 10 mg IVP Q6HR PRN PRN Reason: Nausea / Vomiting Last Admin: 04/12/20 12:39 Dose: 10 mg Documented by: Sodium Chloride (Normal Saline Flush 0.9%) 10 ml IVP PRN PRN PRN Reason: NEEDED PER PROVIDER ORDERS Last Admin: 04/12/20 06:11 Dose: 10 ml Documented by: Sodium Chloride (Normal Saline Flush 0.9%) 10 ml IVP 0100,0900,1700 [facility] Last Admin: 04/13/20 08:32 Dose: Not Given Documented by: Losartan Potassium [Cozaar] 100 mg PO DAILY 04/11/20 Metoprolol Succinate [Toprol Xl] 25 mg PO DAILY 04/11/20 Objective - Vital Signs/Intake & Output Reviewed Vital Signs: Yes Vital Signs: Vital Signs x48h Temp Pulse Resp BP Pulse Ox 04/13/20 15:46 37.7 C H 90 189/65 H 98 04/13/20 12:24 37.5 C 95 20 147/66 H 95 Intake & Output: Intake & Output 04/10/20 04/11/20 04/12/20 04/13/20 23:59 23:59 23:59 23:59 Intake Total 51 2880.000 1200.000 Output Total 100 100 Balance -49 2780.000 1200.000 - Objective General Appearance: positive: No acute distress, Alert, Other (She sleeps most of the day. But she wakes easily when I walk in the room and call out her name. She sits up in bed and is able to answer my questions. Appears comfortable.) Eyes Bilateral: positive: PERRL ENT: positive: Pharynx nml Neck: positive: Thyroid nml Respiratory: positive: Chest non-tender. negative: Wheezes, Rales, Rhonchi Cardiovascular: positive: Regular rate & rhythm. negative: JVD present, Gallop/S4, Friction rub Abdomen: positive: No organomegaly, Nml bowel sounds, No distention Skin: positive: Warm, Dry, Pallor Extremities: positive: Non-tender, No pedal edema Neurologic/Psychiatric: positive: Oriented x3, CN's nml (2-12), Motor nml - Lab Results Fish Bones: 04/13/20 05:00 04/13/20 05:00 Other Labs: Lab Results x24hrs 04/13/20 04/13/20 Range/Units 05:00 05:00 WBC 7.4 (4.8-10.8) x10^3/uL RBC 4.12 L (4.20-5.40) 10^6/uL Hgb 11.4 L (12.0-16.0) g/dL Hct 36.1 L (37.0-47.0) % MCV 87.6 (81.0-99.0) fL MCH 27.7 (27.0-31.0) pg MCHC 31.6 L (32.0-36.0) g/dL RDW 14.5 (12.0-15.0) % Plt Count 150 (130-450) 10^3/uL MPV 10.8 (7.9-10.8) fL Neut # (Auto) Not Reportable Lymph # (Auto) Not Reportable [place] # (Auto) Not Reportable Eos # (Auto) Not Reportable Baso # (Auto) Not Reportable Absolute Nucleated RBC Not Reportable Total Counted 100 Band Neuts % (Manual) 9 (0 - 10) % Abnorm Lymph % (Manual) 0 % Nucleated RBC % Not Reportable Neutrophils # (Manual) 5.6 (1.5-6.6) 10^3/uL Lymphocytes # (Manual) 1.4 L (1.5-3.5) 10^3/uL Monocytes # (Manual) 0.4 (0.0-1.0) 10^3/uL Eosinophils # (Manual) 0.0 (0-0.7) 10^3/uL Basophils # (Manual) 0.0 (0-0.1) 10^3/uL Differential Comment MANUAL DIFFERENTIAL WBC Morphology NORMAL APPEARANCE (NORMAL) Platelet Estimate NORMAL (130-450,000) (NORMAL) Platelet Morphology NORMAL APPEARANCE (NORMAL) RBC Morph Micro Appear NORMAL APPEARANCE (NORMAL) Sodium 140 (135-145) mmol/L Potassium 3.7 (3.5-5.0) mmol/L Chloride 110 (101-111) mmol/L Carbon Dioxide 23 (21-32) mmol/L Anion Gap 7.0 (6-13) BUN 18 (6-20) mg/dL Creatinine 0.9 (0.4-1.0) mg/dL Estimated GFR (MDRD) 61 L (>89) Glucose 131 H (70-100) mg/dL Calcium 8.4 L (8.5-10.3) mg/dL Phosphorus 3.0 (2.5-4.6) mg/dL Magnesium 1.8 (1.7-2.8) mg/dL ABX Reporting Has patient been on IV antibiotics over the past 48 hours?: Yes Assessment/Plan - Problem List (1) Pneumonia Impression: Presented as hypoxia and dyspnea after the EGD. Chest x-ray done and showed diffuse appearance of opacity in the left upper and lower lobes. Large hiatal hernia. Enlarged heart. Plan: Zosyn started last night. Today is finishing up day #1. Qualifiers: Pneumonia type: aspiration pneumonia Aspiration pneumonia type: due to vomit Laterality: left (2) Hemorrhagic esophagitis Impression: with Acute blood loss anemia Impression: She presented as intractable nausea and vomiting. She does remember an episode a little over a month ago where she vomited and had a small amount of blood. But she does not recall having significant reflux that was bothersome. Weight loss of 12 pounds is been intentional. She and her daughter been walking miles every day, cutting back on food during the COVID crisis. She is not aware of a hiatal hernia. She takes a full aspirin of 325 mg a day as opposed to 81 mg a day. This is because she thinks she has a hypercoagulable disorder along the lines of factor V Leiden. She does not want to take formal anticoagulation so she is been taking an aspirin. Plan: Changed to inpatient status last night after EGD. Continue monitoring serial hemoglobins. She appears to be now having a slow upper GI bleed. This may have been the cause of her nausea, vomiting. She is already been typed and screened. Transfuse if drops below 8. Continue protonix drip. NPO. (3) Intractable nausea and vomiting improved Conclusion/Plan: Differential diagnosis had included some type of food poisoning, nonsteroidal gastritis, with possible Amairani-Reyes tear because of the dry heaves. She does not have a history of alcohol and as such no alcoholic gastritis or hepatitis. She does not smoke cannabis as such no cyclical vomiting. Liver enzymes normal, lipase normal so I do not suspect pancreatitis and physical exam is negative for that. In spite of intractable nausea and vomiting, there is no abdominal pain with this so I do not suspect a bowel obstruction. Haldol x 1 dose was effective at reducing dry heaves and nausea. Her symptoms have improved in that they are less severe, however, coffee ground emesis with anemia 04/12 led us down the UGI bleed algorithim. EGD is with erosive esophagitis. Retained food in stomach. And a large hiatal hernia. Plan: Protonix IV Zofran, Compazine, Phenergan as needed IV fluids for hydration Monitor for chest pain, fever (4) HTN (hypertension) Conclusion/Plan: She takes losartan and metoprolol. At this point in time she is driving enough that I do not think medications will stay down.Blood pressure varies from 130 systolic to 156 systolic. Plan: Metoprolol 5 mg IV push every 6 hours PRN hypertension Resume losartan when she stops vomiting. I did start enalapril IV last night after EGD since BP very high. Qualifiers: Hypertension type: essential hypertension Qualified Code(s): I10 - Essential (primary) hypertension
[2020-04-13] MEDS: PIPERACILLIN/TAZOBACTAM 3.375 GM in SODIUM CHLORIDE 0.9% MINIBAG 100 ML IV SCH (16:20)
[2020-04-13] MEDS: METOCLOPRAMIDE 10 MG/2 ML VIAL IVP SCH (18:36)
[2020-04-14] MEDS: PIPERACILLIN/TAZOBACTAM 3.375 GM in SODIUM CHLORIDE 0.9% MINIBAG 100 ML IV SCH ×4 (00:19→23:38)
[2020-04-14] MEDS: METOCLOPRAMIDE 10 MG/2 ML VIAL IVP SCH ×2 (00:19→06:02)
[2020-04-14] MEDS: SODIUM CHLORIDE FLUSH 0.9% 10 ML SYRINGE IVP SCH ×4 (00:20→23:38)
[2020-04-14] MEDS: ENALAPRILAT 1.25 MG/ML VIAL IVP SCH ×5 (00:20→23:37)
[2020-04-14] MEDS: PANTOPRAZOLE 80 MG in SODIUM CHLORIDE 0.9% 100ML 100 ML IV SCH ×2 (03:27→13:39)
[2020-04-14] MEDS: NS W/20 MEQ KCL 1,000 ML IV SCH ×2 (04:03→13:40)
[2020-04-14 07:14] LABS: MEAN CORPUSCULAR VOLUME 88.3 fL (81.0-99.0); RED CELL DISTRIBUTION WIDTH 14.6 % (12.0-15.0)
[2020-04-14 07:25] LABS: BASOPHILS % (AUTO) 0.5 %; EOSINOPHILS % (AUTO) 0.5 %; HGB - HEMOGLOBIN 9.9 g/dL (12.0-16.0); LYMPHOCYTES % (AUTO) 11.5 %; MEAN CORPUSCULAR HGB CONC 30.6 g/dL (32.0-36.0); MEAN PLATELET VOLUME 10.6 fL (7.9-10.8); MONOCYTES % (AUTO) 7.1 %; NEUTROPHILS % (AUTO) 79.9 %; PLT - PLATELET COUNT 122 10^3/uL (130-450); RED BLOOD COUNT 3.67 10^6/uL (4.20-5.40); WHITE BLOOD COUNT 8.7 x10^3/uL (4.8-10.8)
[2020-04-14 07:26] LABS: CALCIUM 8.2 mg/dL (8.5-10.3); CREATININE 0.8 mg/dL (0.4-1.0); MAGNESIUM 1.7 mg/dL (1.7-2.8); PHOSPHORUS 1.9 mg/dL (2.5-4.6)
[2020-04-14 07:35] LABS: ABNORMAL LYMPHS % (MANUAL) 0 %; BAND NEUTROPHILS % (MANUAL) 0 %
[2020-04-14 07:59] LABS: BASOPHILS # (MANUAL) 0.1 10^3/uL (0-0.1); BASOPHILS % (MANUAL) 1 %; EOSINOPHILS # (MANUAL) 0.1 10^3/uL (0-0.7); LYMPHOCYTES % (MANUAL) 9 %; MONOCYTES # (MANUAL) 0.3 10^3/uL (0.0-1.0); PLATELET ESTIMATE, MANUAL DECREASED (<130,000) (NORMAL); PLATELET MORPHOLOGY NORMAL APPEARANCE (NORMAL); RBC MORPHOLOGY (MULTIPLE) NORMAL APPEARANCE (NORMAL)
[2020-04-14 08:00] LABS: DIFFERENTIAL COMMENT MANUAL DIFFERENTIAL
[2020-04-14] MEDS: POTASSIUM CHLOR 10 MEQ/100 ML 10 MEQ/100 ML BAG IV SCH ×2 (09:51→11:28)
--- NOTE | 2020-04-14 14:55 | PROVIDER PROGRESS NOTE ---
Subjective - Prog Note Date Prog Note Date: 04/14/20 Prog Note Time: 14:56 - Subjective Pt reports feeling: Improved Subjective: She is improved with regards to her GI complaints. That her rent is dry heaves, nausea have resolved. She is not had any emesis since yesterday. She is had 2 bowel movements. No flatus this morning. She has been kept n.p.o. with a Protonix drip. Hemoglobin has drifted down. Her main complaint is severe fatigue, shortness of breath because of her pneumonia Current Medications - Current Medications Current Medications: Active Medications Albuterol () 2.5 mg INH RTQ4H PRN PRN Reason: Wheezing Last Admin: 04/13/20 15:55 Dose: 2.5 mg Documented by: Enalaprilat (Vasotec Inj) 1.25 mg IVP Q6HR [facility] Last Admin: 04/14/20 12:59 Dose: 1.25 mg Documented by: Hydromorphone HCl (Dilaudid Inj Syringe) 0.5 mg IVP Q2H PRN PRN Reason: Pain 8 to 10 Potassium Chloride/Sodium Chloride (Normal Saline 0.9% W/20 Meq Kcl) 1,000 mls @ 100 mls/hr IV .Q10H [facility] Last Admin: 04/14/20 13:40 Dose: 100 mls/hr Documented by: Pantoprazole Sodium 80 mg/ (Sodium Chloride) 100 mls @ 10 mls/hr IV .Q10H [facility] Last Admin: 04/14/20 13:39 Dose: 10 mls/hr Documented by: Piperacillin Sod/Tazobactam (Sod 3.375 gm/ Sodium Chloride) 100 mls @ 25 mls/hr IV Q8H [facility] Last Infusion: 04/14/20 13:29 Dose: Infused Documented by: Metoprolol Tartrate (Lopressor Inj) 5 mg IVP Q6H PRN PRN Reason: Hypertensive Emergency Last Admin: 04/12/20 13:11 Dose: 5 mg Documented by: Ondansetron HCl (Zofran Inj) 4 mg IVP Q6HR PRN PRN Reason: Nausea / Vomiting Last Admin: 04/12/20 14:32 Dose: 4 mg Documented by: Prochlorperazine Edisylate (Compazine Inj) 10 mg IVP Q6HR PRN PRN Reason: Nausea / Vomiting Last Admin: 04/12/20 12:39 Dose: 10 mg Documented by: Sodium Chloride (Normal Saline Flush 0.9%) 10 ml IVP PRN PRN PRN Reason: NEEDED PER PROVIDER ORDERS Last Admin: 04/12/20 06:11 Dose: 10 ml Documented by: Sodium Chloride (Normal Saline Flush 0.9%) 10 ml IVP 0100,0900,1700 [facility] Last Admin: 04/14/20 09:51 Dose: Not Given Documented by: Losartan Potassium [Cozaar] 100 mg PO DAILY 04/11/20 Metoprolol Succinate [Toprol Xl] 25 mg PO DAILY 04/11/20 Objective - Vital Signs/Intake & Output Reviewed Vital Signs: Yes Vital Signs: Vital Signs x48h Temp Pulse Resp BP BP Pulse Ox 04/14/20 14:34 99 146/61 H 04/14/20 12:55 37.6 C H 97 24 153/81 H 92 04/14/20 09:00 37.7 C H 103 H 36 H 154/73 H 91 L Intake & Output: Intake & Output 04/11/20 04/12/20 04/13/20 04/14/20 23:59 23:59 23:59 23:59 Intake Total 51 2880.000 2400.000 2560 Output Total 100 100 Balance -49 2780.000 2400.000 2560 - Objective General Appearance: positive: No acute distress, Alert, Other (Sleeps most of the day. I am walking in and waking her up with my voice and she responds. Sits up in bed. I watched her sit up in bed and need only contact guard assist to walk to the bathroom and back but does get tachypneic to 26 with that. Requires 2 L of oxygen.) Eyes Bilateral: positive: PERRL, EOMI ENT: positive: Pharynx nml Neck: positive: No JVD. negative: Lymphadenopathy (R), Lymphadenopathy (L), Stiff neck Respiratory: positive: Chest non-tender, Rhonchi (Left lung. None in right lung.). negative: Wheezes, Rales Cardiovascular: positive: Regular rate & rhythm. negative: JVD present, Gallop/S4, Friction rub Abdomen: positive: Non-tender, No organomegaly, Nml bowel sounds, No distention Skin: positive: Warm, Dry, Pallor Extremities: positive: Non-tender, No pedal edema Neurologic/Psychiatric: positive: Oriented x3, CN's nml (2-12), Motor nml, Sensation nml - Lab Results Fish Bones: 04/14/20 07:07 04/14/20 07:07 Other Labs: Lab Results x24hrs 04/14/20 04/14/20 Range/Units 07:07 07:07 WBC 8.7 (4.8-10.8) x10^3/uL RBC 3.67 L (4.20-5.40) 10^6/uL Hgb 9.9 L (12.0-16.0) g/dL Hct 32.4 L (37.0-47.0) % MCV 88.3 (81.0-99.0) fL MCH 27.0 (27.0-31.0) pg MCHC 30.6 L (32.0-36.0) g/dL RDW 14.6 (12.0-15.0) % Plt Count 122 L (130-450) 10^3/uL MPV 10.6 (7.9-10.8) fL Neut # (Auto) Not Reportable Lymph # (Auto) Not Reportable [place] # (Auto) Not Reportable Eos # (Auto) Not Reportable Baso # (Auto) Not Reportable Absolute Nucleated RBC Not Reportable Total Counted 100 Band Neuts % (Manual) 0 (0 - 10) % Reactive Lymphs % (Man) 2 % Abnorm Lymph % (Manual) 0 % Nucleated RBC % Not Reportable Neutrophils # (Manual) 7.2 H (1.5-6.6) 10^3/uL Lymphocytes # (Manual) 1.0 L (1.5-3.5) 10^3/uL Monocytes # (Manual) 0.3 (0.0-1.0) 10^3/uL Eosinophils # (Manual) 0.1 (0-0.7) 10^3/uL Basophils # (Manual) 0.1 (0-0.1) 10^3/uL Differential Comment MANUAL DIFFERENTIAL Platelet Estimate DECREASED (<130,000) (NORMAL) Platelet Morphology NORMAL APPEARANCE (NORMAL) RBC Morph Micro Appear NORMAL APPEARANCE (NORMAL) Sodium 137 (135-145) mmol/L Potassium 3.4 L (3.5-5.0) mmol/L Chloride 106 (101-111) mmol/L Carbon Dioxide 19 L (21-32) mmol/L Anion Gap 12.0 (6-13) BUN 14 (6-20) mg/dL Creatinine 0.8 (0.4-1.0) mg/dL Estimated GFR (MDRD) 70 L (>89) Glucose 100 (70-100) mg/dL Calcium 8.2 L (8.5-10.3) mg/dL Phosphorus 1.9 L (2.5-4.6) mg/dL Magnesium 1.7 (1.7-2.8) mg/dL ABX Reporting Has patient been on IV antibiotics over the past 48 hours?: Yes Assessment/Plan - Problem List (1) Pneumonia Impression: Presented as hypoxia and dyspnea after the EGD. Chest x-ray done and showed diffuse appearance of opacity in the left upper and lower lobes. Large hiatal hernia. Enlarged heart.Today is day #2 of Zosyn. Main symptoms are just fatig ue and dyspnea on exertion. No cough. Low-grade temps at 37.6. Intermittent tachycardia to 103. Blood pressure staying stable. O2 sat is 92% on 2 L. Plan: She usually does not require oxygen at home. I am hoping to treat her until she no longer needs oxygen and no longer tachycardic. Continue current therapy without change. Qualifiers: Pneumonia type: aspiration pneumonia Aspiration pneumonia type: due to vomit Laterality: left (2) Hemorrhagic esophagitis Impression: with Acute blood loss anemia Impression: She presented as intractable nausea and vomiting. She does remember an episode a little over a month ago where she vomited and had a small amount of blood. But she does not recall having significant reflux that was bothersome. Weight loss of 12 pounds is been intentional. She and her daughter been walking miles every day, cutting back on food during the COVID crisis. She is not aware of a hiatal hernia. She takes a full aspirin of 325 mg a day as opposed to 81 mg a day. This is because she thinks she has a hypercoagulable disorder along the lines of factor V Leiden. She does not want to take formal anticoagulation so she is been taking an aspirin.Changed to inpatient status after her EGD. Hemoglobins continue to show a slight drop. She started at 12.4 on admission. After the EGD she was 10.6. Yesterday 11.4. This morning she is 9.9. Plan: Switch over to p.o. Protonix, start clear liquids. She has not had any black tarry stools in spite of the drop in hemoglobin. I will move slowly. Her hemorrhagic esophagitis was very severe. I am assuming that the food that was retained in her stomach is moved down since she has been having bowel movements. (3) Intractable nausea and vomiting Resolved Conclusion/Plan: 04/13: Differential diagnosis had included some type of food poisoning, nonsteroidal gastritis, with possible Amairani-Reyes tear because of the dry heaves. She does not have a history of alcohol and as such no alcoholic gastritis or hepatitis. She does not smoke cannabis as such no cyclical vomiting. Liver enzymes normal, lipase normal so I do not suspect pancreatitis and physical exam is negative for that. In spite of intractable nausea and vomiting, there is no abdominal pain with this so I do not suspect a bowel obstruction. Haldol x 1 dose was effective at reducing dry heaves and nausea. Her symptoms have improved in that they are less severe, however, coffee ground emesis with anemia 04/12 led us down the UGI bleed algorithim. EGD is with erosive esophagitis. Retained food in stomach. And a large hiatal hernia. 04/14: No nausea or emesis or heaving today.No chest pain today. Plan: Continue antiemetics. Change meds to p.o. Start feeding. (4) HTN (hypertension) Conclusion/Plan: She takes losartan and metoprolol. She was being given metoprolol 5 mg IV push PRN hypertension. Since she could not take p.o. I started her on IV enalapril. Blood pressure still on the high side. She is in the 140s to 150s systolic. Plan: Verify that she can keep food down with the clear liquids. I hesitate to give her too many pills. We will continue with IV antihypertensives until I know she can keep food down today. Qualifiers: Hypertension type: essential hypertension Qualified Code(s): I10 - Essential (primary) hypertension
[2020-04-14] MEDS: ALBUTEROL NEB 2.5 MG/3 ML INH PRN (17:21)
[2020-04-14] MEDS: PANTOPRAZOLE 40 MG TABLET PO SCH (20:38)
[2020-04-14] MEDS: METOPROLOL 5 MG/5 ML VIAL IVP PRN (21:31)
[2020-04-14] MEDS: ACETAMINOPHEN 325 MG TABLET PO PRN (21:45)
[2020-04-15 01:24] LABS: BILIRUBIN,URINE NEGATIVE (NEGATIVE); CLARITY,URINE CLEAR (CLEAR); GLUCOSE, URINE (UA) NEGATIVE (NEGATIVE); KETONES,URINE (UA) NEGATIVE (NEGATIVE); LEUKOCYTE ESTERASE, URINE NEGATIVE (NEGATIVE); NITRITE,URINE NEGATIVE (NEGATIVE); OCCULT BLOOD,URINE SMALL (NEGATIVE); PH,URINE 6.5 PH (5.0-7.5); PROTEIN,URINE NEGATIVE (NEGATIVE); UROBILINOGEN,URINE 1 (NORMAL) E.U./dL (NORMAL)
[2020-04-15 01:30] LABS: BACTERIA,URINE None Seen /HPF (None Seen); RBC,URINE 0-5 /HPF (0-5); SQUAMOUS EPITHELIAL CELL,UR RARE Squamous (<= Few)
[2020-04-15 04:55] LABS: BASOPHILS % (AUTO) 0.4 %; EOSINOPHILS # (AUTO) 0.2 10^3/uL (0.0-0.7); EOSINOPHILS % (AUTO) 1.6 %; HGB - HEMOGLOBIN 10.5 g/dL (12.0-16.0); LYMPHOCYTES # (AUTO) 1.2 10^3/uL (1.5-3.5); LYMPHOCYTES % (AUTO) 11.3 %; MEAN CORPUSCULAR HEMOGLOBIN 27.5 pg (27.0-31.0); MEAN CORPUSCULAR HGB CONC 31.5 g/dL (32.0-36.0); MEAN CORPUSCULAR VOLUME 87.2 fL (81.0-99.0); MEAN PLATELET VOLUME 9.9 fL (7.9-10.8); MONOCYTES # (AUTO) 0.8 10^3/uL (0.0-1.0); MONOCYTES % (AUTO) 8.1 %; NEUTROPHILS # (AUTO) 7.9 10^3/uL (1.5-6.6); NEUTROPHILS % (AUTO) 77.8 %; PLT - PLATELET COUNT 145 10^3/uL (130-450); RED BLOOD COUNT 3.82 10^6/uL (4.20-5.40); RED CELL DISTRIBUTION WIDTH 14.6 % (12.0-15.0); WHITE BLOOD COUNT 10.2 x10^3/uL (4.8-10.8)
[2020-04-15 05:10] LABS: CALCIUM 8.4 mg/dL (8.5-10.3); CREATININE 0.8 mg/dL (0.4-1.0); MAGNESIUM 1.8 mg/dL (1.7-2.8)
[2020-04-15] MEDS: ENALAPRILAT 1.25 MG/ML VIAL IVP SCH ×3 (05:35→17:48)
[2020-04-15] MEDS ORDERED: POTASSIUM CHLOR 10 MEQ/100 ML 10 MEQ/100 ML BAG IV SCH (08:00)
[2020-04-15] MEDS ORDERED: POTASSIUM CHLORIDE INJ 40 MEQ in SODIUM CHLORIDE 0.9% 500 ML IV ONE (09:00)
[2020-04-15] MEDS: PANTOPRAZOLE 40 MG TABLET PO SCH ×2 (09:19→20:44)
[2020-04-15] MEDS: PIPERACILLIN/TAZOBACTAM 3.375 GM in SODIUM CHLORIDE 0.9% MINIBAG 100 ML IV SCH ×2 (09:19→21:53)
[2020-04-15] MEDS: SODIUM CHLORIDE FLUSH 0.9% 10 ML SYRINGE IVP SCH ×2 (09:19→17:18)
[2020-04-15] MEDS: ALBUTEROL NEB 2.5 MG/3 ML INH PRN (09:28)
--- NOTE | 2020-04-15 10:18 | XRAY Report ---
PROCEDURE: Chest 1 View X-Ray INDICATIONS: Follow up infiltrate. TECHNIQUE: One view of the chest was acquired. COMPARISON: 04/12/2020 FINDINGS: The patient is rotated to the left for this study. Surgical changes and devices: None. Lungs and pleura: There is a small left-sided pleural effusion. No pneumothorax is seen. Bilateral pa tchy infiltrates are seen, which have worsened since the prior examination. Mediastinum: Calcification is seen of the aortic arch. Moderate cardiomegaly is seen. There is a la rge hiatal hernia. Bones and chest wall: No suspicious bony lesions. Age-appropriate degenerative changes are seen. O verlying soft tissues appear unremarkable. IMPRESSION: Diffuse bilateral patchy infiltrates are seen, which have worsened since the prior examination. Small left-sided pleural effusion. Mild cardiomegaly. Large hiatal hernia. Reviewed by: Sergei Denise MD on 04/15/2020 9:16 AM YE Approved by: Sergei Denise MD on 04/15/2020 9:16 AM [facility]NINI Station ID: [id number]
--- NOTE | 2020-04-15 13:42 | PROVIDER PROGRESS NOTE ---
Subjective - Prog Note Date Prog Note Date: 04/15/20 Prog Note Time: 13:59 - Subjective Pt reports feeling: Worse Subjective: Spiked a temperature of 39.3 last night. She had a low-grade temp during the day and by the evening was 38-39.3. She is 37.8 this morning. More short of breath. Miserable with just overall feeling ill. No emesis. Normal BMs. Able to tolerate the clear liquid diet I started her on yesterday. Denies cough, sputum production, and needing more oxygen to maintain O2 sats. Current Medications - Current Medications Current Medications: Active Medications Acetaminophen (Tylenol) 650 mg PO Q4HR PRN PRN Reason: Pain or Fever > 38C (100.4F) Last Admin: 04/14/20 21:45 Dose: 650 mg Documented by: Albuterol () 2.5 mg INH RTQ4H PRN PRN Reason: Wheezing Last Admin: 04/15/20 09:28 Dose: 2.5 mg Documented by: Enalaprilat (Vasotec Inj) 1.25 mg IVP Q6HR [facility] Last Admin: 04/15/20 05:35 Dose: 1.25 mg Documented by: Guaifenesin (Mucinex) 600 mg PO BID [facility] Last Admin: 04/15/20 13:55 Dose: 600 mg Documented by: Hydromorphone HCl (Dilaudid Inj Syringe) 0.5 mg IVP Q2H PRN PRN Reason: Pain 8 to 10 Piperacillin Sod/Tazobactam (Sod 3.375 gm/ Sodium Chloride) 100 mls @ 25 mls/hr IV Q8H [facility] Last Infusion: 04/15/20 10:39 Dose: 0 mls/hr Documented by: Levofloxacin (Levaquin 750 Mg/150 Ml) 750 mg in 150 mls @ 100 mls/hr IV Q24H [facility] Metoprolol Tartrate (Lopressor Inj) 5 mg IVP Q6H PRN PRN Reason: Hypertensive Emergency Last Admin: 04/14/20 21:31 Dose: 5 mg Documented by: Ondansetron HCl (Zofran Inj) 4 mg IVP Q6HR PRN PRN Reason: Nausea / Vomiting Last Admin: 04/12/20 14:32 Dose: 4 mg Documented by: Pantoprazole Sodium (Protonix) 40 mg PO BID [facility] Last Admin: 04/15/20 09:19 Dose: 40 mg Documented by: Prochlorperazine Edisylate (Compazine Inj) 10 mg IVP Q6HR PRN PRN Reason: Nausea / Vomiting Last Admin: 04/12/20 12:39 Dose: 10 mg Documented by: Sodium Chloride (Normal Saline Flush 0.9%) 10 ml IVP PRN PRN PRN Reason: NEEDED PER PROVIDER ORDERS Last Admin: 04/12/20 06:11 Dose: 10 ml Documented by: Sodium Chloride (Normal Saline Flush 0.9%) 10 ml IVP 0100,0900,1700 [facility] Last Admin: 04/15/20 09:19 Dose: 10 ml Documented by: Losartan Potassium [Cozaar] 100 mg PO DAILY 04/11/20 Metoprolol Succinate [Toprol Xl] 25 mg PO DAILY 04/11/20 Objective - Vital Signs/Intake & Output Reviewed Vital Signs: Yes Vital Signs: Vital Signs x48h Temp Pulse Pulse Resp BP BP Pulse Ox 04/15/20 12:18 37.8 C H 99 22 149/89 H 91 L 04/15/20 10:30 92 146/72 H 04/15/20 09:24 96 04/15/20 08:11 37.2 C 91 20 175/81 H Intake & Output: Intake & Output 04/12/20 04/13/20 04/14/20 04/15/20 23:59 23:59 23:59 23:59 Intake Total 2880.000 2400.000 2812.333 600.000 Output Total 100 0 400 Balance 2780.000 2400.000 2812.333 200.000 - Objective General Appearance: positive: No acute distress, Mild distress Eyes Bilateral: positive: PERRL, EOMI ENT: positive: Pharynx nml Neck: positive: No JVD Respiratory: positive: Chest non-tender, Rhonchi, Other (Respiratory rate was 18-19. Yesterday she went up to 36 and then back down to 24. This morning she is 20 to 22 breaths/min.) Cardiovascular: positive: Regular rate & rhythm, Systolic murmur. negative: Gallop/S4, Friction rub Abdomen: positive: Non-tender, No organomegaly, Nml bowel sounds, No distention Skin: positive: Warm, Dry, Pallor Extremities: positive: Non-tender, No pedal edema Neurologic/Psychiatric: positive: Oriented x3, CN's nml (2-12), Motor nml, W eakness (Generalized.) - Lab Results Fish Bones: 04/15/20 04:45 04/15/20 04:45 Other Labs: Lab Results x24hrs 04/15/20 04/15/20 04/15/20 Range/Units 04:45 04:45 01:17 WBC 10.2 (4.8-10.8) x10^3/uL RBC 3.82 L (4.20-5.40) 10^6/uL Hgb 10.5 L (12.0-16.0) g/dL Hct 33.3 L (37.0-47.0) % MCV 87.2 (81.0-99.0) fL MCH 27.5 (27.0-31.0) pg MCHC 31.5 L (32.0-36.0) g/dL RDW 14.6 (12.0-15.0) % Plt Count 145 (130-450) 10^3/uL MPV 9.9 (7.9-10.8) fL Neut # (Auto) 7.9 H (1.5-6.6) 10^3/uL Lymph # (Auto) 1.2 L (1.5-3.5) 10^3/uL [place] # (Auto) 0.8 (0.0-1.0) 10^3/uL Eos # (Auto) 0.2 (0.0-0.7) 10^3/uL Baso # (Auto) 0.0 (0.0-0.1) 10^3/uL Absolute Nucleated RBC 0.00 x10^3/uL Nucleated RBC % 0.0 /100WBC Sodium 138 (135-145) mmol/L Potassium 3.2 L (3.5-5.0) mmol/L Chloride 104 (101-111) mmol/L Carbon Dioxide 24 (21-32) mmol/L Anion Gap 10.0 (6-13) BUN 11 (6-20) mg/dL Creatinine 0.8 (0.4-1.0) mg/dL Estimated GFR (MDRD) 70 L (>89) Glucose 108 H (70-100) mg/dL Calcium 8.4 L (8.5-10.3) mg/dL Phosphorus 3.0 (2.5-4.6) mg/dL Magnesium 1.8 (1.7-2.8) mg/dL Urine Color YELLOW Urine Clarity CLEAR (CLEAR) Urine pH 6.5 (5.0-7.5) PH Ur Specific [place] 1.010 (1.002-1.030) Urine Protein NEGATIVE (NEGATIVE) mg/dL Urine Glucose (UA) NEGATIVE (NEGATIVE) mg/dL Urine Ketones NEGATIVE (NEGATIVE) mg/dL Urine Occult Blood SMALL H (NEGATIVE) Urine Nitrite NEGATIVE (NEGATIVE) Urine Bilirubin NEGATIVE (NEGATIVE) Urine Urobilinogen 1 (NORMAL) (NORMAL) E.U./dL Ur Leukocyte Esterase NEGATIVE (NEGATIVE) Urine RBC 0-5 (0-5) /HPF Urine WBC 0-3 (0-5) /HPF Ur Squamous Epith Cells RARE Squamous (<= Few) Urine Bacteria None Seen (None Seen) /HPF Urine Culture Comments NOT INDICATED Assessment/Plan - Problem List (1) Pneumonia Impression: Presented as hypoxia and dyspnea after the EGD. Chest x-ray done and showed diffuse appearance of opacity in the left upper and lower lobes. Large hiatal hernia. Enlarged heart.Today is day #3 of Zosyn. Main symptoms are just fatigue and dyspnea on exertion. No cough. in spite of zosyn she is not doing well and spiked a temp again today. Needing more 02 and is up to 3 liters today from the 2 liters yesterday. asking for mucinex for sense of chest congestion that doesn't want to come up. Intermittent tachycardia to 103. Blood pressure staying stable. Her repeat chest x-ray shows diffuse bilateral patchy infiltrates that are worse than the prior April 12 chest x-ray. Small left- sided pleural effusion. Plan: She usually does not require oxygen at home as such increasing 02 requiremnt is very concerning. We were treating as aspiration but not responding. UpToDate recommends Zosyn 4.5 g every 6 hours or cefepime 2 g every 8 hours. She is on Zosyn day #3. She is she is not responding I will add Levaquin as opposed to gentamicin or tobramycin. I do not think she has Legionella. Up -to-date also recommends adding vancomycin if I suspect MRSA. This is a patient who is living independently in her own home, not previously ill. Will check MRSA swab. If it is positive we will add vancomycin. It was negative, will not add vancomycin. Will also check Covid. Supplemental IVF stopped yesterday to avoid fluid overload Qualifiers: Pneumonia type: aspiration pneumonia Aspiration pneumonia type: due to vomit Laterality: left (2) Hemorrhagic esophagitis Impression: with Acute blood loss anemia Impression: She presented as intractable nausea and vomiting. She does remember an episode a little over a month ago where she vomited and had a small amount of blood. But she does not recall having significant reflux that was bothersome. Weight loss of 12 pounds is been intentional. She and her daughter been walking miles every day, cutting back on food during the COVID crisis. She is not aware of a hiatal hernia. She takes a full aspirin of 325 mg a day as opposed to 81 mg a day. This is because she thinks she has a hypercoagulable disorder along the lines of factor V Leiden. She does not want to take formal anticoagulation so she is been taking an aspirin.Changed to inpatient status after her EGD. EGD is with erosive esophagitis. Retained food in stomach. And a large hiatal hernia. Hemoglobins continue to show a slight drop. She started at 12.4 on admission. After the EGD she was 10.6>> 11.4 >>9.9>>10.5. Started on protonix 04/14 and clear liquids. No emesis. Having BM. Plan: Advance diet (3) Intractable nausea and vomiting Resolved Conclusion/Plan: 04/13: Differential diagnosis had included some type of food poisoning, nonsteroidal gastritis, with possible Amairani-Reyes tear because of the dry heaves. She does not have a history of alcohol and as such no alcoholic gastritis or hepatitis. She does not smoke cannabis as such no cyclical vomiting. Liver enzymes normal, lipase normal so I do not suspect pancreatitis and physical exam is negative for that. In spite of intractable nausea and vomiting, there is no abdominal pain with this so I do not suspect a bowel obstruction. Haldol x 1 dose was effective at reducing dry heaves and nausea. Her symptoms have improved in that they are less severe, however, coffee ground emesis with anemia 04/12 led us down the UGI bleed algorithim. EGD is with erosive esophagitis. Retained food in stomach. And a large hiatal hernia. 04/14: No nausea or emesis or heaving today.No chest pain today. 04/15: stable. Plan: Continue antiemetics. Change meds to p.o. Started feeding 04/14 Advance to soft diet today. (4) HTN (hypertension) Conclusion/Plan: She takes losartan and metoprolol. She was being given metoprolol 5 mg IV push PRN hypertension. Since she could not take p.o. I started her on IV enalapril. Blood pressure still on the high side. She is in the 140s to 150s systolic. Plan: Verify that she can keep food down with the clear liquids being advanced to regular diet. I hesitate to give her too many pills. We will continue with IV antihypertensives until I know she can keep food down today. Plan for resumption po BP meds 04/16. Qualifiers: Hypertension type: essential hypertension Qualified Code(s): I10 - Essential (primary) hypertension (5) DVT prophylaxis I did not start her on heparin subcu or Lovenox subcu because of the esophagitis and upper GI bleed. Will make sure she uses her sequential compression device. She hates the compression stockings.
[2020-04-15] MEDS: guaiFENesin 600 MG TABLET PO SCH ×2 (13:55→20:44)
[2020-04-15] MEDS: levoFLOXacin 750 MG/150 ML 750 MG/150 ML BAG IV SCH (15:41)
[2020-04-15] MEDS ORDERED: ALBUTEROL 1 PUFF INH PRN (15:41)
[2020-04-15] MEDS: ACETAMINOPHEN 325 MG TABLET PO PRN (15:45)
[2020-04-15] MEDS: SODIUM CHLORIDE 0.9% 500 ML IV PRN (20:47)
[2020-04-15] MEDS: METOPROLOL 5 MG/5 ML VIAL IVP PRN (20:53)
[2020-04-15] MEDS ORDERED: MAGNESIUM HYDROXIDE 2,400 MG/30 ML UDC PO ONE (21:00)
[2020-04-16] MEDS: ENALAPRILAT 1.25 MG/ML VIAL IVP SCH ×3 (00:47→12:17)
[2020-04-16] MEDS: SODIUM CHLORIDE FLUSH 0.9% 10 ML SYRINGE IVP SCH ×3 (02:10→18:50)
[2020-04-16] MEDS ORDERED: SODIUM CHLORIDE 0.9% 500 ML IV ONE (05:35)
[2020-04-16] MEDS: PIPERACILLIN/TAZOBACTAM 3.375 GM in SODIUM CHLORIDE 0.9% MINIBAG 100 ML IV SCH ×3 (05:55→22:41)
[2020-04-16] MEDS ORDERED: MAG HYDROX/AL HYDROX/SIMETH 30 ML UDC PO PRN (07:07)
[2020-04-16] MEDS: polyethylene glycoL 3350 17 GM PACKET PO SCH (10:37)
[2020-04-16] MEDS: PANTOPRAZOLE 40 MG TABLET PO SCH ×2 (10:37→20:57)
[2020-04-16] MEDS: guaiFENesin 600 MG TABLET PO SCH ×2 (10:37→20:57)
[2020-04-16] MEDS ORDERED: POTASSIUM CHLORIDE 10 MEQ CAPSULE PO SCH (18:00)
--- NOTE | 2020-04-16 18:15 | PROVIDER PROGRESS NOTE ---
Subjective - Prog Note Date Prog Note Date: 04/16/20 Prog Note Time: 18:11 - Subjective Pt reports feeling: Improved Subjective: She asked me why I did not see her yesterday. I reminded her that I did and then I reminded her of the things we discussed. She then remembered I saw her but it was upsetting to her realize that she felt like she lost a day. She feels like she is seeing "snippets" of reality and then she is just so tired and sleepy she does not was going on. That being said, somewhere around 3 in the morning today she felt like she "turned the corner". The mosley nasty phlegm that she has been coughing up every day is clear and runny. She loves the Acapella valve that she is using to help her bring up phlegm. She likes the DVT prophylaxis with sequential compression devices. She still not hungry. She can barely bring herself to eat 4 ounces of a smoothie that was brought to her. Cough is looser, more frequent. No more nausea, retching. Objective - Vital Signs/Intake & Output Reviewed Vital Signs: Yes Vital Signs: Vital Signs x48h Temp Pulse Pulse Resp BP BP Pulse Ox 04/16/20 16:25 36.8 C 91 18 154/83 H 92 04/16/20 12:16 88 146/84 H 92 04/16/20 10:53 36.6 C 80 19 176/82 H 89 L Intake & Output: Intake & Output 04/13/20 04/14/20 04/15/20 04/16/20 23:59 23:59 23:59 23:59 Intake Total 2400.000 2812.333 1170.000 454.667 Output Total 0 400 Balance 2400.000 2812.333 770.000 454.667 - Objective General Appearance: positive: No acute distress, Alert, Other (Sitting up at the side of the bed with her sequential compression device on. Grimacing at the food and her table saying she does not have an appetite.) Eyes Bilateral: positive: PERRL ENT: positive: Pharynx nml Neck: positive: No JVD Respiratory: positive: Chest non-tender, No respiratory distress, Rhonchi. negative: Wheezes, Rales Cardiovascular: positive: Regular rate & rhythm. negative: Gallop/S4, Friction rub Abdomen: positive: Non-tender, No organomegaly, Nml bowel sounds, No distention Skin: positive: Warm, Dry Extremities: positive: Full ROM, Pedal edema (Minimal around the ankles and toes) Neurologic/Psychiatric: positive: Oriented x3, CN's nml (2-12), Motor nml (But generalized weakness. She is able to sit up on the side of the bed on her own, go to the bathroom. But very tired.) - Lab Results Fish Bones: 04/15/20 04:45 04/15/20 04:45 Other Labs: Lab Results x24hrs 04/15/20 Range/Units 15:03 Coronavirus (PCR) NEGATIVE ABX Reporting Has patient been on IV antibiotics over the past 48 hours?: Yes Assessment/Plan - Problem List (1) Pneumonia Impression: Presented as hypoxia and dyspnea after the EGD. Chest x-ray done and showed diffuse appearance of opacity in the left upper and lower lobes. Large hiatal hernia. Enlarged heart.Today is day #4 of Zosyn. Main symptoms are just fatigue and dyspnea on exertion. No cough Initially which then turned into quite a bit of a cough by yesterday afternoon. in spite of zosyn, she was not doing well the last 2 days and spiked a temperature yesterday afternoon. Needing more 02 and was up to 3 liters. She was asking for mucinex for sense of chest congestion that doesn't want to come up. she had intermittent tachycardia to 103. Blood pressure staying stable. I repeated her xray 04/15 and it showed diffuse bilateral patchy infiltrates that are worse than the prior April 12 chest x-ray. Small left-sided pleural effusion. I then added Levaquin. MRSA swab of the nose was negative so I opted not to do vancomycin. There is been an improvement. She has not had a fever since I started the Levaquin yesterday. She is down to 1 L nasal cannula of oxygen. And she herself states that she just feels better. Plan: Continue Zosyn Day #4 and Levaquin Day #2. Do that for at least 2 more days IV since she is done so poorly. She may be able to be then switched to oral Levaquin to go home on. (2) Hemorrhagic esophagitis with Acute blood loss anemia Impression: She presented as intractable nausea and vomiting. She does remember an episode a little over a month ago where she vomited and had a small amount of blood. But she does not recall having significant reflux that was bothersome. Weight loss of 12 pounds is been intentional. She and her daughter been walking miles every day, cutting back on food during the COVID crisis. She is not aware of a hiatal hernia. She takes a full aspirin of 325 mg a day as opposed to 81 mg a day. This is because she thinks she has a hypercoagulable disorder along the lines of factor V Leiden. She does not want to take formal anticoagulation so she is been taking an aspirin.Changed to inpatient status after her EGD. EGD is with erosive esophagitis. Retained food in stomach. And a large hiatal hernia. Hemoglobin showed a slight drop. She started at 12.4 on admission. After the EGD she was 10.6>> 11.4 >>9.9>>10.5. Started on protonix 04/14 and clear liquids. No emesis. Having BM.She is still basically on full liquids. We try to advance her to a regular diet today and she just does not want it. Plan: Advance diet When she is ready (3) Intractable nausea and vomiting Resolved Conclusion/Plan: 04/13: Differential diagnosis had included some type of food poisoning, nonsteroidal gastritis, with possible Amairani-Reyes tear because of the dry heaves. She does not have a history of alcohol and as such no alcoholic gastritis or hepatitis. She does not smoke cannabis as such no cyclical vomiting. Liver enzymes normal, lipase normal so I do not suspect pancreatitis and physical exam is negative for that. In spite of intractable nausea and vomiting, there is no abdominal pain with this so I do not suspect a bowel obstruction. Haldol x 1 dose was effective at reducing dry heaves and nausea. Her symptoms have improved in that they are less severe, however, coffee ground emesis with anemia 04/12 led us down the UGI bleed algorithim. EGD is with erosive esophagitis. Retained food in stomach. And a large hiatal hernia. 04/14: No nausea or emesis or heaving today.No chest pain today. 04/15 and 04/16: stable. Plan: Continue antiemetics. Change meds to p.o. Started feeding 04/14 Keep at full liquids today at her request. (4) HTN (hypertension) Conclusion/Plan: She takes losartan and metoprolol. She was being given metoprolol 5 mg IV push PRN hypertension. Since she could not take p.o. I started her on IV enalapril. Blood pressure still on the high side. She is in the 140s to 150s systolic. Plan: She is finally been keeping food down for the last 2 days with no emesis. No retching. Will resume losartan and metoprolol p.o. today. (5) DVT prophylaxis I did not start her on heparin subcu or Lovenox subcu because of the esophagitis and upper GI bleed. She hates the compression stockings. They are very uncomfortable. I started her on SCDs yesterday and she loves them. She says that make her legs feel great and wonders if she could buy something for home.
[2020-04-16] MEDS: LOSARTAN 50 MG TABLET PO SCH (18:50)
[2020-04-16] MEDS: levoFLOXacin 750 MG/150 ML 750 MG/150 ML BAG IV SCH (21:04)
[2020-04-17] MEDS: SODIUM CHLORIDE FLUSH 0.9% 10 ML SYRINGE IVP SCH ×3 (03:17→16:42)
[2020-04-17 05:11] LABS: BASOPHILS % (AUTO) 0.3 %; EOSINOPHILS # (AUTO) 0.1 10^3/uL (0.0-0.7); EOSINOPHILS % (AUTO) 1.4 %; HGB - HEMOGLOBIN 9.5 g/dL (12.0-16.0); LYMPHOCYTES # (AUTO) 0.9 10^3/uL (1.5-3.5); LYMPHOCYTES % (AUTO) 13.9 %; MEAN CORPUSCULAR HEMOGLOBIN 26.3 pg (27.0-31.0); MEAN CORPUSCULAR HGB CONC 30.6 g/dL (32.0-36.0); MEAN CORPUSCULAR VOLUME 85.9 fL (81.0-99.0); MEAN PLATELET VOLUME 9.9 fL (7.9-10.8); MONOCYTES # (AUTO) 0.8 10^3/uL (0.0-1.0); NEUTROPHILS # (AUTO) 4.6 10^3/uL (1.5-6.6); NEUTROPHILS % (AUTO) 70.9 %; PLT - PLATELET COUNT 136 10^3/uL (130-450); RED BLOOD COUNT 3.61 10^6/uL (4.20-5.40); RED CELL DISTRIBUTION WIDTH 14.6 % (12.0-15.0); WHITE BLOOD COUNT 6.5 x10^3/uL (4.8-10.8)
[2020-04-17 05:20] LABS: CALCIUM 8.6 mg/dL (8.5-10.3); CREATININE 0.7 mg/dL (0.4-1.0)
[2020-04-17] MEDS: PIPERACILLIN/TAZOBACTAM 3.375 GM in SODIUM CHLORIDE 0.9% MINIBAG 100 ML IV SCH ×3 (05:47→22:32)
[2020-04-17] MEDS ORDERED: POTASSIUM CHLORIDE 20 MEQ TABLET PO SCH ×2 (08:34→12:00)
[2020-04-17] MEDS: guaiFENesin 600 MG TABLET PO SCH ×2 (10:05→20:42)
[2020-04-17] MEDS: polyethylene glycoL 3350 17 GM PACKET PO SCH (10:05)
[2020-04-17] MEDS: LOSARTAN 50 MG TABLET PO SCH (10:05)
[2020-04-17] MEDS: PANTOPRAZOLE 40 MG TABLET PO SCH ×2 (10:05→20:42)
[2020-04-17] MEDS: METOPROLOL SUCCINATE 25 MG TABLET PO SCH (10:05)
[2020-04-17] MEDS ORDERED: SIMETHICONE CHEW 80 MG TABLET PO PRN ×2 (16:24→16:26)
[2020-04-17] MEDS: ACETAMINOPHEN 325 MG TABLET PO PRN (16:42)
--- NOTE | 2020-04-17 17:04 | PROVIDER PROGRESS NOTE ---
Assessment/Plan - Problem List (1) Pneumonia Assessment/Plan: Presented as hypoxia and dyspnea after the EGD. Chest x-ray done and showed diffuse appearance of opacity in the left upper and lower lobes. Large hiatal hernia. Enlarged heart.Today is day #4 of Zosyn. Main symptoms are just fatigue and dyspnea on exertion. No cough Initially which then turned into quite a bit of a cough by yesterday afternoon. in spite of zosyn, she was not doing well the last 2 days and spiked a temperature yesterday afternoon. Needing more 02 and was up to 3 liters. She was asking for mucinex for sense of chest co ngestion that doesn't want to come up. she had intermittent tachycardia to 103. Blood pressure staying stable. I repeated her xray 04/15 and it showed diffuse bilateral patchy infiltrates that are worse than the prior April 12 chest x- ray. Small left-sided pleural effusion. I then added Levaquin. MRSA swab of the nose was negative so I opted not to do vancomycin. There is been an improvement. She has not had a fever since I started the Levaquin yesterday. She is down to 1 L nasal cannula of oxygen. And she herself states that she just feels better. Plan: Continue Zosyn and Levaquin (Day # 7 is today). She may be able to be then switched to oral Levaquin to go home on. (2) Hemorrhagic esophagitis Assessment/Plan: She presented as intractable nausea and vomiting. She does remember an episode a little over a month ago where she vomited and had a small amount of blood. But she does not recall having significant reflux that was bothersome. Weight loss of 12 pounds has been intentional. She and her daughter been walking miles every day, cutting back on food during the COVID crisis. She is not aware of a hiatal hernia. She takes a full aspirin of 325 mg a day as opposed to 81 mg a day. This is because she thinks she has a hypercoagulable disorder along the lines of factor V Leiden. She does not want to take formal anticoagulation so she is been taking an aspirin. Pt was changed to inpatient status after her EGD which showed erosive esophagitis. Retained food in stomach. And a large hiatal hernia. Hemoglobin showed a slight drop. She started at 12.4 on admission. After the EGD she was 10.6>> 11.4 >>9.9>>10.5. Started on protonix 04/14 and clear liquids. No emesis. Having BM.She is still basically on full liquids. We try to advance her to a regular diet today and she just does not want it. Plan: Advance diet and poss [facility] tomorrow (3) Intractable nausea and vomiting Assessment/Plan: Resolved (4) HTN (hypertension) Assessment/Plan: She takes losartan and metoprolol. She was being given metoprolol 5 mg IV push PRN hypertension. Since she could not take p.o. I started her on IV enalapril. Blood pressure was still on the high side. She is in the 140s to 150s systolic. Plan: She is finally been keeping food down for the last several days with no emesis. No retching. we resumed the order for losartan and metoprolol p.o. - Current Meds Current Meds: Current Medications Generic Name Dose Route Start Last Admin Trade Name Freq PRN Reason Stop Dose Admin Acetaminophen 650 mg 04/14/20 21:32 04/17/20 16:42 Tylenol PO 650 mg Q4HR PRN Administration Pain or Fever > 38C (100.4F) Albuterol 2.5 mg 04/12/20 21:57 04/15/20 09:28 INH 2.5 mg RTQ4H PRN Administration Wheezing Albuterol 2 puffs 04/15/20 15:41 04/15/20 15:57 Mdi: Albuterol INH 2 puffs Q4HR PRN Administration Dyspnea Guaifenesin 600 mg 04/15/20 14:00 04/17/20 10:05 Mucinex PO 600 mg BID BENSON Administration Piperacillin Sod/Tazobactam 100 mls @ 25 mls/hr 04/13/20 08:00 04/17/20 14:14 Sod 3.375 gm/ Sodium Chloride IV 25 mls/hr Q8H BENSON Administration Levofloxacin 750 mg in 150 mls @ 100 mls/hr 04/15/20 15:00 04/16/20 22:41 Levaquin 750 Mg/150 Ml IV Infused Q24H BENSON Infusion Sodium Chloride 500 mls @ 0 mls/hr 04/15/20 18:31 04/17/20 14:14 Normal Saline 0.9% IV 0 mls/hr Q24H PRN Infusion TKO RATE TKO Losartan Potassium 100 mg 04/16/20 18:00 04/17/20 10:05 Cozaar PO 100 mg DAILY BENSON Administration Metoprolol Succinate 25 mg 04/17/20 09:00 04/17/20 10:05 Toprol Xl PO 25 mg DAILY BENSON Administration Ondansetron HCl 4 mg 04/11/20 14:09 04/12/20 14:32 Zofran Inj IVP 4 mg Q6HR PRN Administration Nausea / Vomiting Pantoprazole Sodium 40 mg 04/14/20 21:00 04/17/20 10:05 Protonix PO 40 mg BID BENSON Administration Polyethylene Glycol 17 gm 04/16/20 09:00 04/17/20 10:05 Miralax PO Not Given DAILY BENSON Prochlorperazine Edisylate 10 mg 04/11/20 14:09 04/12/20 12:39 Compazine Inj IVP 10 mg Q6HR PRN Administration Nausea / Vomiting Sodium Chloride 10 ml 04/11/20 14:09 04/12/20 06:11 Normal Saline Flush 0.9% IVP 10 ml PRN PRN Administration NEEDED PER PROVIDER ORDERS Sodium Chloride 10 ml 04/11/20 17:00 04/17/20 16:42 Normal Saline Flush 0.9% IVP Not Given 0100,0900,1700 BENSON - Lab Result Fish Bone Diagrams: 04/17/20 04:56 04/17/20 04:56 - Additional Planning My Orders: My Active Orders 04/17/20 16:26 Simethicone [Mylicon] 80 mg PO 0900,1300,1800,2100 PRN 04/18/20 05:00 BMP - BASIC METABOLIC PANEL [CHEM] DAILYLAB CBC - COMP BLD CT W/AUTO DIFF [HEME] DAILYLAB Subjective - Subjective Patient Reports: Resting Comfortably Objective Vital Signs: Vital Signs - 24 hr 04/16/20 04/17/20 04/17/20 20:06 00:21 05:30 Temperature 37.6 C H 36.8 C 36.8 C Heart Rate [ 97 90 94 Monitoring electrodes] Respiratory 18 20 20 Rate Blood Pressure 156/74 H [Left Brachial artery] Blood Pressure 159/76 H 141/66 H [Right Brachial artery] O2 Saturation 94 91 L 91 L 04/17/20 04/17/20 04/17/20 08:00 13:00 16:31 Temperature 37.0 C 37.3 C 39.1 C H Heart Rate [ 94 93 98 Monitoring electrodes] Respiratory 18 20 16 Rate Blood Pressure 151/85 H 186/92 H 174/74 H [Left Brachial artery] Blood Pressure [Right Brachial artery] O2 Saturation 90 L 96 93 Oxygen O2 Source Nasal cannula I&O (Last 24 Hrs): Intake and Output Totals x24h 04/15/20 04/16/20 04/17/20 23:59 23:59 23:59 Intake Total 1170.000 980.000 459 Output Total 400 Balance 770.000 980.000 459 General: Alert, Oriented x3 HEENT: PERRLA, EOMI, Mucous membr. moist/pink Neck: Supple, No JVD Neuro: Alert, Non Focal Cardiovascular: Regular rate Respiratory: No respiratory distress, Rhonchi (L side) Abdomen: Soft Extremities: Other (1+ pedal edema) - Results Results: Laboratory Results WBC 6.5 x10^3/uL (4.8-10.8) 04/17/20 04:56 RBC 3.61 10^6/uL (4.20-5.40) L 04/17/20 04:56 Hgb 9.5 g/dL (12.0-16.0) L 04/17/20 04:56 Hct 31.0 % (37.0-47.0) L 04/17/20 04:56 MCV 85.9 fL (81.0-99.0) 04/17/20 04:56 MCH 26.3 pg (27.0-31.0) L 04/17/20 04:56 MCHC 30.6 g/dL (32.0-36.0) L 04/17/20 04:56 RDW 14.6 % (12.0-15.0) 04/17/20 04:56 Plt Count 136 10^3/uL (130-450) 04/17/20 04:56 MPV 9.9 fL (7.9-10.8) 04/17/20 04:56 Neut # (Auto) 4.6 10^3/uL (1.5-6.6) 04/17/20 04:56 Lymph # (Auto) 0.9 10^3/uL (1.5-3.5) L 04/17/20 04:56 Cavalier # (Auto) 0.8 10^3/uL (0.0-1.0) 04/17/20 04:56 Eos # (Auto) 0.1 10^3/uL (0.0-0.7) 04/17/20 04:56 Baso # (Auto) 0.0 10^3/uL (0.0-0.1) 04/17/20 04:56 Absolute Nucleated RBC 0.00 x10^3/uL 04/17/20 04:56 Total Counted 100 04/14/20 07:07 Band Neuts % (Manual) 0 % (0-10) 04/14/20 07:07 Reactive Lymphs % (Man) 2 % 04/14/20 07:07 Abnorm Lymph % (Manual) 0 % 04/14/20 07:07 Nucleated RBC % 0.0 /100WBC 04/17/20 04:56 Neutrophils # (Manual) 7.2 10^3/uL (1.5-6.6) H 04/14/20 07:07 Lymphocytes # (Manual) 1.0 10^3/uL (1.5-3.5) L 04/14/20 07:07 Monocytes # (Manual) 0.3 10^3/uL (0.0-1.0) 04/14/20 07:07 Eosinophils # (Manual) 0.1 10^3/uL (0-0.7) 04/14/20 07:07 Basophils # (Manual) 0.1 10^3/uL (0-0.1) 04/14/20 07:07 Differential Comment MANUAL DIFFERENTIAL 04/14/20 07:07 WBC Morphology NORMAL APPEARANCE (NORMAL) 04/13/20 05:00 Platelet Estimate DECREASED (<130,000) (NORMAL) 04/14/20 07:07 Platelet Morphology NORMAL APPEARANCE (NORMAL) 04/14/20 07:07 RBC Morph Micro Appear NORMAL APPEARANCE (NORMAL) 04/14/20 07:07 PT 12.4 secs (9.9-12.6) 04/11/20 07:30 INR 1.1 (0.8-1.2) 04/11/20 07:30 Sodium 138 mmol/L (135-145) 04/17/20 04:56 Potassium 3.0 mmol/L (3.5-5.0) L 04/17/20 04:56 Chloride 102 mmol/L (101-111) 04/17/20 04:56 Carbon Dioxide 27 mmol/L (21-32) 04/17/20 04:56 Anion Gap 9.0 (6-13) 04/17/20 04:56 BUN 13 mg/dL (6-20) 04/17/20 04:56 Creatinine 0.7 mg/dL (0.4-1.0) 04/17/20 04:56 Estimated GFR (MDRD) 82 (>89) L 04/17/20 04:56 Glucose 117 mg/dL (70-100) H 04/17/20 04:56 Calcium 8.6 mg/dL (8.5-10.3) 04/17/20 04:56 Phosphorus 3.0 mg/dL (2.5-4.6) 04/15/20 04:45 Magnesium 1.8 mg/dL (1.7-2.8) 04/15/20 04:45 Total Bilirubin 0.7 mg/dL (0.2-1.0) 04/11/20 07:30 AST 25 IU/L (10-42) 04/11/20 07:30 ALT 19 IU/L (10-60) 04/11/20 07:30 Alkaline Phosphatase 86 IU/L (42-121) 04/11/20 07:30 Troponin I High Sens 11.7 ng/L (2.3-14.8) 04/11/20 07:30 Total Protein 7.8 g/dL (6.7-8.2) 04/11/20 07:30 Albumin 4.4 g/dL (3.2-5.5) 04/11/20 07:30 Globulin 3.4 g/dL (2.1-4.2) 04/11/20 07:30 Albumin/Globulin Ratio 1.3 (1.0-2.2) 04/11/20 07:30 Lipase 39 U/L (22-51) 04/11/20 07:30 Urine Color YELLOW 04/15/20 01:17 Urine Clarity CLEAR (CLEAR) 04/15/20 01:17 Urine pH 6.5 PH (5.0-7.5) 04/15/20 01:17 Ur Specific [place] 1.010 (1.002-1.030) 04/15/20 01:17 Urine Protein NEGATIVE mg/dL (NEGATIVE) 04/15/20 01:17 Urine Glucose (UA) NEGATIVE mg/dL (NEGATIVE) 04/15/20 01:17 Urine Ketones NEGATIVE mg/dL (NEGATIVE) 04/15/20 01:17 Urine Occult Blood SMALL (NEGATIVE) H 04/15/20 01:17 Urine Nitrite NEGATIVE (NEGATIVE) 04/15/20 01:17 Urine Bilirubin NEGATIVE (NEGATIVE) 04/15/20 01:17 Urine Urobilinogen 1 (NORMAL) E.U./dL (NORMAL) 04/15/20 01:17 Ur Leukocyte Esterase NEGATIVE (NEGATIVE) 04/15/20 01:17 Urine RBC 0-5 /HPF (0-5) 04/15/20 01:17 Urine WBC 0-3 /HPF (0-5) 04/15/20 01:17 Ur Squamous Epith Cells RARE Squamous (<= Few) 04/15/20 01:17 Urine Bacteria None Seen /HPF (None Seen) 04/15/20 01:17 Urine Culture Comments NOT INDICATED 04/15/20 01:17 Nasal Screen MRSA (PCR) NEGATIVE (NEGATIVE) 04/15/20 15:03 Coronavirus (PCR) NEGATIVE 04/15/20 15:03 Blood Type O NEGATIVE 04/11/20 07:40 Blood Type Recheck O NEGATIVE 04/11/20 07:30 Antibody Screen NEGATIVE 04/11/20 07:40
[2020-04-17] MEDS: levoFLOXacin 750 MG/150 ML 750 MG/150 ML BAG IV SCH (20:42)
[2020-04-17] MEDS ORDERED: SODIUM CHLORIDE 0.9% MINIBAG 100 ML IV ONE (20:47)
[2020-04-18] MEDS: SODIUM CHLORIDE FLUSH 0.9% 10 ML SYRINGE IVP SCH ×3 (03:08→17:55)
[2020-04-18 05:32] LABS: BASOPHILS # (AUTO) 0.1 10^3/uL (0.0-0.1); BASOPHILS % (AUTO) 0.6 %; EOSINOPHILS # (AUTO) 0.1 10^3/uL (0.0-0.7); EOSINOPHILS % (AUTO) 1.1 %; HGB - HEMOGLOBIN 10.3 g/dL (12.0-16.0); LYMPHOCYTES # (AUTO) 1.9 10^3/uL (1.5-3.5); LYMPHOCYTES % (AUTO) 22.8 %; MEAN CORPUSCULAR HEMOGLOBIN 26.3 pg (27.0-31.0); MEAN CORPUSCULAR HGB CONC 29.9 g/dL (32.0-36.0); MEAN CORPUSCULAR VOLUME 87.8 fL (81.0-99.0); MEAN PLATELET VOLUME 10.8 fL (7.9-10.8); MONOCYTES # (AUTO) 0.9 10^3/uL (0.0-1.0); MONOCYTES % (AUTO) 10.8 %; NEUTROPHILS # (AUTO) 5.3 10^3/uL (1.5-6.6); NEUTROPHILS % (AUTO) 63.9 %; PLT - PLATELET COUNT 161 10^3/uL (130-450); RED BLOOD COUNT 3.92 10^6/uL (4.20-5.40); RED CELL DISTRIBUTION WIDTH 14.7 % (12.0-15.0); WHITE BLOOD COUNT 8.3 x10^3/uL (4.8-10.8)
[2020-04-18 05:38] LABS: CALCIUM 8.9 mg/dL (8.5-10.3); CREATININE 0.8 mg/dL (0.4-1.0)
[2020-04-18] MEDS: PIPERACILLIN/TAZOBACTAM 3.375 GM in SODIUM CHLORIDE 0.9% MINIBAG 100 ML IV SCH (06:29)
[2020-04-18] MEDS: LOSARTAN 50 MG TABLET PO SCH (08:16)
[2020-04-18] MEDS: polyethylene glycoL 3350 17 GM PACKET PO SCH (08:17)
[2020-04-18] MEDS: PANTOPRAZOLE 40 MG TABLET PO SCH ×2 (08:17→21:21)
[2020-04-18] MEDS: guaiFENesin 600 MG TABLET PO SCH ×2 (08:17→21:21)
[2020-04-18] MEDS: METOPROLOL SUCCINATE 25 MG TABLET PO SCH (08:17)
--- NOTE | 2020-04-18 09:27 | XRAY Report ---
PROCEDURE: Chest 1 View X-Ray INDICATIONS: F/U pneumonia TECHNIQUE: One view of the chest was acquired. COMPARISON: 04/15/2020 & 04/12/2020 FINDINGS: Surgical changes and devices: Surgical clips in the right neck.. Lungs and pleura: Multifocal alveolar opacities are redemonstrated, more consolidated on the left lat eral lung, and in a patchy distribution in the right upper lobe. There is density at the retrocardiac left lung base. Possible small left effusion large air-filled hiatal hernia present. Mediastinum: Mediastinal contours appear normal. Heart size is normal. Bones and chest wall: No suspicious bony lesions. Overlying soft tissues appear unremarkable. IMPRESSION: 1. There is been increased consolidation in the alveolar opacities in the left lung compared to prior studies and worsening of the right midlung opacity. 2. Small left effusion, unchanged. 3. Large hiatal hernia, stable. Reviewed by: Jazmine Corey MD on 04/18/2020 8:25 AM YE Approved by: Jazmine Corey MD on 04/18/2020 8:25 AM YE Station ID: [id number]
[2020-04-18] MEDS: SODIUM CHLORIDE 0.9% 500 ML IV PRN (10:41)
[2020-04-18] MEDS: POTASSIUM CHLOR 10 MEQ/100 ML 10 MEQ/100 ML BAG IV SCH ×4 (10:51→18:47)
--- NOTE | 2020-04-18 14:37 | Discharge Plan ---
Discharge Plan Problem Reviewed?: Yes Disposition: 02 Transfer Acute Care Hosp Condition: Stable No Smoking: If you smoke, Please STOP! Call for help.
--- NOTE | 2020-04-18 14:37 | DISCHARGE SUMMARY ---
Discharge Summary Admit Date: 04/11/20 Discharge Date: 04/19/20 Discharging Provider: Dr Adrienne Gonzalez Primary Care Provider: Dr Josue Espinal Code Status: Do Not Attempt Resuscitation Condition at Discharge: Stable Discharge Disposition: 02 Transfer Acute Care Hosp Discharge Facility Name: [facility] History of Present Illness: From the admission H&P of Dr Astrid Marie: This patient woke up after midnight with severe nausea, that then progressed to vomiting. She has not had diarrhea but she has had frequent stools. There is been no fever, chills. No generalized abdominal pain. No one is sick around her. She and her daughter, who lives with her, had the same food last night. Daughter is not ill. As the night progressed and the vomiting continued, she began vomiting small amounts of blood this morning. She does not have a history of alcohol abuse. She does take a daily aspirin for history of right carotid endarterectomy. She does not have a history of gastritis or ulcers. She does have a history of cholecystectomy in the remote past. She does not use cannabis on a regular basis. There is no change in vision, dizziness, vertigo associated with this. No facial dysesthesia or localizing loss of neurological signs. She presented to the emergency room and was evaluated. She was afebrile at 36.7. Pulse was 70. Blood pressure was 197/109. That was at 7:30 in the morning. It is now 2:15 in the afternoon. She is received 4 courses of antiemetics without significant response. IV fluids. Blood pressure is now 168/76. Exam has been negative. Labs are relatively benign except for a glucose of 149. CBC is normal. Troponin this morning was 11.7 with a normal EKG. Since she is not responding to antiemetics, still having emesis in the emergency room, with hematemesis, she will be placed in Observation status to control her vomiting, and to do serial H/H labs. - HOSPITAL COURSE Hospital Course: (1) Intractable nausea and vomiting Placed in Observation status with hope that she would have resolution of her s ymptoms and stabilization soon, however she continued to have nausea and retching and she underwent EGD. The findings were that of having hemorrhagic esophagitis and of having a large portion of her stomach in her chest with retained food (despite 3 days of nausea and vomiting). 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 She was advised to have surgical intervention for this. She was started on a clear liquid diet with plan to advance as tolerated but she herself did not want to advance past full liquids. (2) Hemorrhagic esophagitis She was started on PPI, on full liquid diet, the patient herself did not want it advanced. (3) Hiatal hernia She was advised to have surgical intervention for this in the future. (4) Pneumonia At mid hospitalization, she started to desaturate and had a cough. A CXR was done and showed patchy infiltrates. A COVID test was sent and it returned negative. She was put on oxygen and empiric Zosyn. She had chest x-ray follow- up 2 days later which showed worsening consolidation and Levaquin was added to Zosyn. Another chest x-ray was done because of persistent desaturations despite 7 days of iv antibiotics and it showed even worse dense infiltrates bilaterally. This Hospitalist reached out to [facility] to have her accepted for higher level of care and [facility] contacted a director geothermal operations and infectious disease doctor and then a Hospitalist and she was accepted by all 3, for transfer to [facility]. Infectious disease recommended that her antibiotics be broadened and strengthened to use Meropenem. Meropenem iv was ordered and Zosyn plus Levaquin were discontinued. Infectious disease also recommended that she be retested for COVID, as she could have been COVID negative on the first nasal swab and now developed a positive test. COVID swab was ordered and again returned negative. Project Development Engineer felt that she probably was having recurrent aspiration. There was a day delay in transfer because there were no beds available at [facility]. (5) HTN (hypertension) BP stable here on her current meds and management. (6) Hypokalemia due to inadequate potassium intake Replaced with po and iv K riders and we followed BMP daily. (7) Anemia At admission, the hemoglobin was 13.5. From mid hospitalization on she ranged between 9.5 and 10. She was on 7 days of IV hydration, the anemia was felt to be hemo-dilutional. No obvious signs of bleeding. - ALLERGIES Allergies/Adverse Reactions: Allergies Allergy/AdvReac Type Severity Reaction Status Date / Time erythromycin base Allergy Rash Verified 04/11/20 07:29 - MEDICATIONS Home Medications: Ambulatory Orders Medication Instructions Recorded Confirmed Losartan Potassium [Cozaar] 100 mg PO DAILY 04/11/20 04/12/20 Metoprolol Succinate [Toprol Xl] 25 mg PO DAILY 04/11/20 04/12/20 - PHYSICAL EXAM AT DISCHARGE General Appearance: positive: No acute distress, Alert Eyes Bilateral: positive: Normal inspection, EOMI, Other (Cheeks flushed) ENT: positive: No signs of dehydration Neck: positive: Nml inspection, No JVD Respiratory: positive: Chest non-tender, Rhonchi Cardiovascular: positive: Regular rate & rhythm, No murmur Abdomen: positive: Non-tender, No distention Skin: positive: Color nml, Warm, Dry Extremities: positive: No pedal edema Neurologic/Psychiatric: positive: Oriented x3 (Non-focal) - LABS Result Diagrams: 04/19/20 04:30 04/19/20 04:30 - DIAGNOSTIC IMAGING Diagnostic Imaging Results: Final report reviewed - FOLLOW UP Follow Up: See PCP after discharge from hospitalization at [facility]. - TIME SPENT Time Spent in Discharge (Minutes): 60
[2020-04-18] MEDS: MEROPENEM 1 GM in SODIUM CHLORIDE 0.9% MINIBAG 100 ML IV SCH ×2 (14:47→21:21)
[2020-04-18] MEDS: SODIUM CHLORIDE FLUSH 0.9% 10 ML SYRINGE IVP PRN (14:49)
[2020-04-18] MEDS: SACCHAROMYCES BOULARDII 250 MG CAPSULE PO SCH ×2 (15:04→17:53)
[2020-04-18] MEDS: ACETAMINOPHEN 325 MG TABLET PO PRN (16:30)
--- NOTE | 2020-04-18 19:20 | PROVIDER PROGRESS NOTE ---
Assessment/Plan - Problem List (1) Pneumonia Assessment/Plan: CXR done today, because she is still desaturating if taken off supplemental O2, and shows worsening consolidation, and still bilateral infiltrates. With this I told the patient she qualifies for Transfer for pulmonary evaluation and infectious disease evaluation. The patient agrees. I spoke to [place] who contacted their manager food safety and infectious disease doctor and then hospitalist and she was accepted by all 3, for transfer to [facility]. Infectious disease recommended that her antibiotics be broadened and strengthened to use Meropenem. Meropenem iv was ordered and Zosyn plus Levaquin were discontinued. Infectious disease also recommended that she be retested for COVID, as she could have been COVID negative on the first nasal swab and now developed a positive test. COVID swab was ordered and isolation reordered. Director Of Operations For Therapy felt that she probably is having recurrent aspiration. We are awaiting transfer by ground ambulance. There were no beds available at [facility] today however. (2) Hemorrhagic esophagitis Assessment/Plan: Continue with PPI. Continue with full liquid diet, the patient herself does not want it advanced. (3) HTN (hypertension) Assessment/Plan: BP stable here on her current meds and management. (4) Hypokalemia due to inadequate potassium intake Assessment/Plan: Replace with po and iv K riders. Follow BMP daily. (5) Intractable nausea and vomiting Assessment/Plan: Resolved - Current Meds Current Meds: Current Medications Generic Name Dose Route Start Last Admin Trade Name Freq PRN Reason Stop Dose Admin Acetaminophen 650 mg 04/14/20 21:32 04/18/20 16:30 Tylenol PO 650 mg Q4HR PRN Administration Pain or Fever > 38C (100.4F) Albuterol 2.5 mg 04/12/20 21:57 04/15/20 09:28 INH 2.5 mg RTQ4H PRN Administration Wheezing Albuterol 2 puffs 04/15/20 15:41 04/15/20 15:57 Mdi: Albuterol INH 2 puffs Q4HR PRN Administration Dyspnea Guaifenesin 600 mg 04/15/20 14:00 04/18/20 08:17 Mucinex PO 600 mg BID BENSON Administration Meropenem 1 gm/ Sodium 100 mls @ 200 mls/hr 04/18/20 13:00 04/18/20 15:20 Chloride IV Infused Q8H BENSON Infusion Losartan Potassium 100 mg 04/16/20 18:00 04/18/20 08:16 Cozaar PO 100 mg DAILY BENSON Administration Metoprolol Succinate 25 mg 04/17/20 09:00 04/18/20 08:17 Toprol Xl PO 25 mg DAILY BENSON Administration Ondansetron HCl 4 mg 04/11/20 14:09 04/12/20 14:32 Zofran Inj IVP 4 mg Q6HR PRN Administration Nausea / Vomiting Pantoprazole Sodium 40 mg 04/14/20 21:00 04/18/20 08:17 Protonix PO 40 mg BID BENSON Administration Polyethylene Glycol 17 gm 04/16/20 09:00 04/18/20 08:17 Miralax PO Not Given DAILY [facility] Prochlorperazine Edisylate 10 mg 04/11/20 14:09 04/12/20 12:39 Compazine Inj IVP 10 mg Q6HR PRN Administration Nausea / Vomiting Saccharomyces Boulardii 250 mg 04/18/20 11:42 04/18/20 17:53 Florastor PO 250 mg BIDWM [facility] Administration Simethicone 80 mg 04/17/20 16:26 04/18/20 00:27 Mylicon PO 80 mg 0900,1300,1800,2100 PRN Administration INDIGESTION Sodium Chloride 10 ml 04/11/20 14:09 04/18/20 14:49 Normal Saline Flush 0.9% IVP 10 ml PRN PRN Administration NEEDED PER PROVIDER ORDERS Sodium Chloride 10 ml 04/11/20 17:00 04/18/20 17:55 Normal Saline Flush 0.9% IVP Not Given 0100,0900,1700 [facility] - Lab Result Fish Bone Diagrams: 04/19/20 04:30 04/19/20 04:30 - Additional Planning My Orders: My Active Orders 04/18/20 COVID-19 REFERENCE TEST Routine 04/18/20 11:42 Saccharomyces Boulardii [Florastor] 250 mg PO BIDWM 04/18/20 13:00 Meropenem [Merrem] 1 gm Sodium Chloride 0.9% Minibag [Normal Saline 0.9% Minibag] 100 ml IV Q8H 04/18/20 14:36 Discharge [RC] .ONCE 09/23/20 16:35 C DIFF PCR Stat 04/19/20 05:00 BMP - BASIC METABOLIC PANEL [CHEM] DAILYLAB CBC - COMP BLD CT W/AUTO DIFF [HEME] DAILYLAB MAGNESIUM [CHEM] DAILYLAB Subjective - Subjective Patient Reports: Other ( No different, dry cough) Objective Vital Signs: Vital Signs - 24 hr 04/17/20 04/18/20 04/18/20 20:02 00:11 05:00 Temperature 37.2 C 37.2 C 36.8 C Heart Rate [ 79 92 Brachial] Heart Rate [ 85 Monitoring electrodes] Respiratory 18 16 17 Rate Blood Pressure 155/69 H 152/79 H 151/72 H [Left Brachial artery] Blood Pressure [Right Brachial artery] O2 Saturation 92 95 92 04/18/20 04/18/20 08:13 15:36 Temperature 36.5 C 36.9 C Heart Rate [ Brachial] Heart Rate [ 84 82 Monitoring electrodes] Respiratory 20 18 Rate Blood Pressure 175/87 H [Left Brachial artery] Blood Pressure 151/91 H [Right Brachial artery] O2 Saturation 91 L 96 Oxygen O2 Source Nasal cannula I&O (Last 24 Hrs): Intake and Output Totals x24h 04/16/20 04/17/20 04/18/20 23:59 23:59 23:59 Intake Total 980.784 541 5997.000 Output Total 250 Balance 980.008 147 0970.000 HEENT: Other (Cheeks red) Neck: Supple Neuro: Alert, Non Focal Cardiovascular: Regular rate Respiratory: No respiratory distress, Rhonchi Abdomen: Soft Extremities: No edema - Results Results: Laboratory Results WBC 8.3 x10^3/uL (4.8-10.8) 04/18/20 04:55 RBC 3.92 10^6/uL (4.20-5.40) L 04/18/20 04:55 Hgb 10.3 g/dL (12.0-16.0) L 04/18/20 04:55 Hct 34.4 % (37.0-47.0) L 04/18/20 04:55 MCV 87.8 fL (81.0-99.0) 04/18/20 04:55 MCH 26.3 pg (27.0-31.0) L 04/18/20 04:55 MCHC 29.9 g/dL (32.0-36.0) L 04/18/20 04:55 RDW 14.7 % (12.0-15.0) 04/18/20 04:55 Plt Count 161 10^3/uL (130-450) 04/18/20 04:55 MPV 10.8 fL (7.9-10.8) 04/18/20 04:55 Neut # (Auto) 5.3 10^3/uL (1.5-6.6) 04/18/20 04:55 Lymph # (Auto) 1.9 10^3/uL (1.5-3.5) 04/18/20 04:55 Lynn # (Auto) 0.9 10^3/uL (0.0-1.0) 04/18/20 04:55 Eos # (Auto) 0.1 10^3/uL (0.0-0.7) 04/18/20 04:55 Baso # (Auto) 0.1 10^3/uL (0.0-0.1) 04/18/20 04:55 Absolute Nucleated RBC 0.00 x10^3/uL 04/18/20 04:55 Total Counted 100 04/14/20 07:07 Band Neuts % (Manual) 0 % (0-10) 04/14/20 07:07 Reactive Lymphs % (Man) 2 % 04/14/20 07:07 Abnorm Lymph % (Manual) 0 % 04/14/20 07:07 Nucleated RBC % 0.0 /100WBC 04/18/20 04:55 Neutrophils # (Manual) 7.2 10^3/uL (1.5-6.6) H 04/14/20 07:07 Lymphocytes # (Manual) 1.0 10^3/uL (1.5-3.5) L 04/14/20 07:07 Monocytes # (Manual) 0.3 10^3/uL (0.0-1.0) 04/14/20 07:07 Eosinophils # (Manual) 0.1 10^3/uL (0-0.7) 04/14/20 07:07 Basophils # (Manual) 0.1 10^3/uL (0-0.1) 04/14/20 07:07 Differential Comment MANUAL DIFFERENTIAL 04/14/20 07:07 WBC Morphology NORMAL APPEARANCE (NORMAL) 04/13/20 05:00 Platelet Estimate DECREASED (<130,000) (NORMAL) 04/14/20 07:07 Platelet Morphology NORMAL APPEARANCE (NORMAL) 04/14/20 07:07 RBC Morph Micro Appear NORMAL APPEARANCE (NORMAL) 04/14/20 07:07 PT 12.4 secs (9.9-12.6) 04/11/20 07:30 INR 1.1 (0.8-1.2) 04/11/20 07:30 Sodium 140 mmol/L (135-145) 04/18/20 04:55 Potassium 3.2 mmol/L (3.5-5.0) L 04/18/20 04:55 Chloride 98 mmol/L (101-111) L 04/18/20 04:55 Carbon Dioxide 25 mmol/L (21-32) 04/18/20 04:55 Anion Gap 17.0 (6-13) H 04/18/20 04:55 BUN 13 mg/dL (6-20) 04/18/20 04:55 Creatinine 0.8 mg/dL (0.4-1.0) 04/18/20 04:55 Estimated GFR (MDRD) 70 (>89) L 04/18/20 04:55 Glucose 105 mg/dL (70-100) H 04/18/20 04:55 Calcium 8.9 mg/dL (8.5-10.3) 04/18/20 04:55 Phosphorus 3.0 mg/dL (2.5-4.6) 04/15/20 04:45 Magnesium 1.8 mg/dL (1.7-2.8) 04/15/20 04:45 Total Bilirubin 0.7 mg/dL (0.2-1.0) 04/11/20 07:30 AST 25 IU/L (10-42) 04/11/20 07:30 ALT 19 IU/L (10-60) 04/11/20 07:30 Alkaline Phosphatase 86 IU/L (42-121) 04/11/20 07:30 Troponin I High Sens 11.7 ng/L (2.3-14.8) 04/11/20 07:30 Total Protein 7.8 g/dL (6.7-8.2) 04/11/20 07:30 Albumin 4.4 g/dL (3.2-5.5) 04/11/20 07:30 Globulin 3.4 g/dL (2.1-4.2) 04/11/20 07:30 Albumin/Globulin Ratio 1.3 (1.0-2.2) 04/11/20 07:30 Lipase 39 U/L (22-51) 04/11/20 07:30 Urine Color YELLOW 04/15/20 01:17 Urine Clarity CLEAR (CLEAR) 04/15/20 01:17 Urine pH 6.5 PH (5.0-7.5) 04/15/20 01:17 Ur Specific [place] 1.010 (1.002-1.030) 04/15/20 01:17 Urine Protein NEGATIVE mg/dL (NEGATIVE) 04/15/20 01:17 Urine Glucose (UA) NEGATIVE mg/dL (NEGATIVE) 04/15/20 01:17 Urine Ketones NEGATIVE mg/dL (NEGATIVE) 04/15/20 01:17 Urine Occult Blood SMALL (NEGATIVE) H 04/15/20 01:17 Urine Nitrite NEGATIVE (NEGATIVE) 04/15/20 01:17 Urine Bilirubin NEGATIVE (NEGATIVE) 04/15/20 01:17 Urine Urobilinogen 1 (NORMAL) E.U./dL (NORMAL) 04/15/20 01:17 Ur Leukocyte Esterase NEGATIVE (NEGATIVE) 04/15/20 01:17 Urine RBC 0-5 /HPF (0-5) 04/15/20 01:17 Urine WBC 0-3 /HPF (0-5) 04/15/20 01:17 Ur Squamous Epith Cells RARE Squamous (<= Few) 04/15/20 01:17 Urine Bacteria None Seen /HPF (None Seen) 04/15/20 01:17 Urine Culture Comments NOT INDICATED 04/15/20 01:17 Nasal Screen MRSA (PCR) NEGATIVE (NEGATIVE) 04/15/20 15:03 Coronavirus (PCR) NEGATIVE 04/15/20 15:03 Blood Type O NEGATIVE 04/11/20 07:40 Blood Type Recheck O NEGATIVE 04/11/20 07:30 Antibody Screen NEGATIVE 04/11/20 07:40
[2020-04-19] MEDS: SODIUM CHLORIDE FLUSH 0.9% 10 ML SYRINGE IVP SCH ×3 (01:13→17:28)
[2020-04-19] MEDS: MEROPENEM 1 GM in SODIUM CHLORIDE 0.9% MINIBAG 100 ML IV SCH ×2 (04:33→12:42)
[2020-04-19 05:03] LABS: BASOPHILS % (AUTO) 0.3 %; EOSINOPHILS # (AUTO) 0.2 10^3/uL (0.0-0.7); EOSINOPHILS % (AUTO) 2.2 %; HGB - HEMOGLOBIN 9.5 g/dL (12.0-16.0); LYMPHOCYTES # (AUTO) 1.2 10^3/uL (1.5-3.5); MEAN CORPUSCULAR HEMOGLOBIN 26.2 pg (27.0-31.0); MEAN CORPUSCULAR HGB CONC 30.3 g/dL (32.0-36.0); MEAN CORPUSCULAR VOLUME 86.5 fL (81.0-99.0); MEAN PLATELET VOLUME 10.5 fL (7.9-10.8); MONOCYTES # (AUTO) 0.5 10^3/uL (0.0-1.0); MONOCYTES % (AUTO) 7.8 %; NEUTROPHILS # (AUTO) 4.7 10^3/uL (1.5-6.6); PLT - PLATELET COUNT 143 10^3/uL (130-450); RED BLOOD COUNT 3.63 10^6/uL (4.20-5.40); RED CELL DISTRIBUTION WIDTH 14.7 % (12.0-15.0); WHITE BLOOD COUNT 6.7 x10^3/uL (4.8-10.8)
[2020-04-19 05:09] LABS: CALCIUM 8.8 mg/dL (8.5-10.3); CREATININE 0.6 mg/dL (0.4-1.0); MAGNESIUM 1.8 mg/dL (1.7-2.8)
[2020-04-19] MEDS: PANTOPRAZOLE 40 MG TABLET PO SCH (06:28)
[2020-04-19] MEDS ORDERED: MAGNESIUM SULFATE 2 GRAM 2 GM/50 ML BAG IV ONE (08:00)
[2020-04-19] MEDS ORDERED: POTASSIUM CHLOR 10 MEQ/100 ML 10 MEQ/100 ML BAG IV ONE (08:00)
[2020-04-19] MEDS ORDERED: POTASSIUM CHLORIDE 20 MEQ TABLET PO ONE (08:00)
[2020-04-19] MEDS: SACCHAROMYCES BOULARDII 250 MG CAPSULE PO SCH ×2 (08:33→17:27)
[2020-04-19] MEDS: METOPROLOL SUCCINATE 25 MG TABLET PO SCH (08:34)
[2020-04-19] MEDS: guaiFENesin 600 MG TABLET PO SCH (08:34)
[2020-04-19] MEDS: LOSARTAN 50 MG TABLET PO SCH (08:34)
[2020-04-19] MEDS: polyethylene glycoL 3350 17 GM PACKET PO SCH (08:48)
[2020-04-19] MEDS ORDERED: hydrALAZINE INJ 20 MG/ML VIAL IVP SCH (18:05)
[2020-04-19 18:12] VITALS: BP 195/80
== END 2020-04-19 18:15 | disposition short-term general hospital (02) | DRG 380 ==
LOC: ED 07:13 → MS3 14:09 → OBSVTOIN 04-12 19:05
PROVIDERS: ADMIT Specialist; ATTEND Internal Medicine
PROC: 0DB38ZX Excision of Lower Esophagus, Via Natural or Artificial Opening Endoscopic, Diagnostic (ICD-10-PCS; principal; 2020-04-12 16:30)
DX: K22.11 Ulcer of esophagus with bleeding (principal); K21.0 Gastro-esophageal reflux disease with esophagitis; J69.0 Pneumonitis due to inhalation of food and vomit; D62 Acute posthemorrhagic anemia; K56.699 Other intestinal obstruction unspecified as to partial versus complete obstruction; K44.9 Diaphragmatic hernia without obstruction or gangrene; I10 Essential (primary) hypertension; E87.6 Hypokalemia; I73.9 Peripheral vascular disease, unspecified; Z66 Do not resuscitate; H54.7 Unspecified visual loss; Z20.828 Contact with and (suspected) exposure to other viral communicable diseases; Z95.2 Presence of prosthetic heart valve; Z79.82 Long term (current) use of aspirin; Z79.899 Other long term (current) drug therapy
CPT/HCPCS: 36415; 43239; 71045; 80048; 80053; 81001; 83690; 83735; 84100; 84484; 85014; 85018; 85025; 85610; 86850; 86900; 86901; 87040; 87493; 87640; 93005; 94640; 96365; 96366; 96367; 96375; 96376; 99284; 99285; A9270; G0378; J2185; J2765; J7040; U0004; 87086